=== PATIENT | female | born 1940 | race Caucasian/White ===

== ENCOUNTER 2024-11-18 16:18 | Inpatient (IN) | payer MEDICARE, OTHER, SELFPAY ==
[2024-11-18] VITALS (8 sets, daily range): BP systolic 96–154; BP diastolic 56–108; BMI 30.2
[2024-11-18 13:02] LABS: % Basophils 0.2 % (0-2); % Immature Granulocytes 0.5 % (0-0.5); % Lymphocytes 4.9 % (20.5-51.1); % Monocytes 6.6 % (1.7-9.3); % Neutrophils 87.8 % (42.2-75.2); Absolute Immature Granulocytes 0.1 10^3/uL (0-0.05); Absolute Lymphocytes 0.9 10^3/uL (1.2-3.4); Absolute Monocytes 1.3 10^3/uL (0.1-0.6); Absolute Neutrophils 16.7 10^3/uL (1.4-6.5); Hematocrit 37.8 % (37.0-47.0); Mean Corp Hgb Conc. 34.4 g/dL (33.0-37.0); Mean Corpuscular Hgb 32.2 pg (27.0-31.0); Mean Corpuscular Volume 93.6 fL (81.0-99.0); Mean Platelet Volume 9.8 fL (7.4-10.4); Nucleated Red Blood Cells % 0 %; Platelet Count 205 10^3/uL (130-400); Red Blood Cell Count 4.04 10^6/uL (4.20-5.40); Red Cell Dist. Width 12.6 % (11.5-14.5)
[2024-11-18 13:05] LABS: Urine Albumin 3+ (Neg - Trace); Urine Bilirubin Negative (Negative); Urine Character Slightly Cloudy (Clear); Urine Color Yellow; Urine Glucose Negative (Negative); Urine Ketone Negative (Negative); Urine Leukocyte 3+ (Negative); Urine Nitrite Negative (Negative); Urine Occult Blood 3+ (Negative); Urine Urobilinogen Negative (Neg - 1+)
[2024-11-18 13:19] LABS: COVID-19 Antigen Negative (Negative)
[2024-11-18 13:21] LABS: Lactic Acid 1.2 mmol/L (0.7-2.0)
[2024-11-18 13:22] LABS: ALT (SGPT) 24 U/L (0-35); AST (SGOT) 40 U/L (14-36); Alkaline Phosphatase 70 U/L (38-126); Blood Urea Nitrogen 26 mg/dl (7-17); Calcium 10.4 mg/dl (8.4-10.2); Carbon Dioxide 27 mmol/L (22-30); Chloride 99 mmol/L (98-107); Estimated Creatinine Clearance 49 ml/min; Glucose 120 mg/dl (70-99); Potassium 3.4 mmol/L (3.5-5.1); Sodium 136 mmol/L (135-145); Total Bilirubin 1.3 mg/dl (0.2-1.3); Total Protein 7.2 g/dl (6.3-8.2); eGFR > 60.00
[2024-11-18 13:45] LABS: Urine Bacteria Moderate (Negative); Urine Red Blood Cell 0-2 /HPF (0-2); Urine Squamous Cell 0-2 /LPF (Few); Urine White Cell 40-50 /HPF (0-5)
--- NOTE | 2024-11-18 13:47 | ED.GENMED ---
History of Present Illness
General
Chief Complaint: Change Level of Consciousness
Source: patient and family
Exam Limitations: none
Time Seen by Provider: 11/18/24 12:38
Nursing documentation reviewed up to this point in time: agreed with
History of Present Illness
History of Present Illness:
84-year-old female from [facility] presents for evaluation of confusion she had a fall few nights ago felt dizzy struck her head she has a contusion hematoma on her left forehead is also has some cough and congestion fever decreased p.o.
intake for few days has had sick contacts family member states she looks confused, not herself
Past History
Past History
ED Past Medical History: GERD, HTN, Hypercholesterolemia and Other (occipital neuralgia, pneumonia)
ED Past Surgical History: Bowel resection and Other (cataracts)
Social History
Tobacco: Former smoker
Alcohol: Occasional
Personal: Single
Living: with family
Employment: Retired
Family History
Family History: Other (Father with a abdominal aortic aneurysm mother with a cerebral hemorrhage, son with HIV)
Phy Exam
Physical Exam
Physical Exam:
Physical Exam
General: 84-year-old female febrile
Neck: Bruising about the left forehead
Heart: Tachycardia
Lungs: Rhonchorous
Abdomen: Soft
Neuro: alert and oriented. no focal neurological deficits globally weak
Skin: no rash
Psychiatric: cooperative
Extremities: no edema.
Course
Orders/Labs/Results
Orders:
Orders
11/18/24 12:43
COVID-19 Antigen Urgent
Source: Nasal Swab
Complete Blood Count/With Diff Urgent
Comprehensive Metabolic Panel Urgent
Lactic Acid Urgent
Influenza A+B Rapid Molecular Urgent
SANTOSH Source: Nasal Swab
Specimen Description:
11/18/24 12:47
Urinalysis Reflex To Culture Urgent
Date Specimen was Collected: 11/18/24
Time Specimen was Collected: 12:43
Urine Microscopic Reflex Cult Urgent
Urine Culture Urgent
SANTOSH Source: U
Specimen Description:
Date Specimen was Collected: 11/18/24
Time Specimen was Collected: 12:43
11/18/24 13:20
CT Cervical Spine W/o Iv Contr Urgent
Comment:
Reason For Exam: fall
CT Head W/o Iv Contrast Urgent
Comment:
Reason For Exam: fall
CR Chest - 2 Views Urgent
Comment:
Reason For Exam: cough
11/18/24 13:44
0.9% Sodium Chloride 1000 ml [Nss] 1,000 ml IV BOLUS
Acetaminophen [Tylenol] 650 mg PO NOW STA
11/18/24 13:51
Blood Culture Q30M
SANTOSH Source: Blood/Venous
Specimen Description:
Blood Culture Q30M
SANTOSH Source: Blood/Venous
Specimen Description:
CefTRIAXone [Rocephin] 1,000 mg IV NOW STA
Abnormal Lab Results
11/18/24 11/18/24
12:43 12:47
WBC 19.0 H 10^3/uL
(4.8-10.8)
RBC 4.04 L 10^6/uL
(4.20-5.40)
MCH 32.2 H pg
(27.0-31.0)
Abs Immat Gran (auto) 0.1 H 10^3/uL
(0-0.05)
Absolute Neuts (auto) 16.7 H 10^3/uL
(1.4-6.5)
Absolute Lymphs (auto) 0.9 L 10^3/uL
(1.2-3.4)
Absolute Monos (auto) 1.3 H 10^3/uL
(0.1-0.6)
Neutrophils % 87.8 H %
(42.2-75.2)
Lymphocytes % 4.9 L %
(20.5-51.1)
Potassium 3.4 L mmol/L
(3.5-5.1)
BUN 26 H mg/dl
(7-17)
Glucose 120 H mg/dl
(70-99)
Calcium 10.4 H mg/dl
(8.4-10.2)
AST 40 H U/L
(14-36)
Ur Occult Blood Reflex 3+ A
(Negative)
Leukocyte Esterase Rfl 3+ A
(Negative)
Urine WBC (Reflex) 40-50 A /HPF
(0-5)
Urine Bacteria (Reflex) Moderate A
(Negative)
Urine Albumin (Reflex) 3+ A
(Neg - Trace)
11/18/24 12:43
11/18/24 12:43
Vital Signs
Initial and Last Documented VS:
Initial Vital Signs
Temp Pulse Resp BP Pulse Ox
99.9 F 88 18 121/108 94
11/18/24 12:39 11/18/24 12:39 11/18/24 12:39 11/18/24 12:39 11/18/24 12:39
Last Documented Vital Signs
Temp Pulse Resp BP Pulse Ox
100.4 F H 88 21 126/56 95
11/18/24 13:44 11/18/24 12:46 11/18/24 12:46 11/18/24 12:46 11/18/24 12:53
*Critical Care Note
Total Time (30-74mins, 75-104mins- exclusive of procedures): Not Applicable
ED Attending Note
-
Portions of this chart may have been created with voice recognition software.� Occasional wrong word or��sound alike� substitutions may have occurred due to the inherent limitations of voice recognition software.
Discharge Plan
Departure
Patient Disposition: Admit
Date of Disposition: 11/18/24
Time of Disposition: 14:59
Admit to: Med/Surg
Presentation/result/management discussed w/ accepting MD/DO: Hospitalist
Patient with high blood pressure during this ER visit?: No
Condition: Fair
Discharge Problem:
Fever, Acute UTI, Delirious
Prescriptions:
No Action
oxybutynin chloride 15 MG tablet extended release 24hr
15 mg PO DAILY
melatonin 3 MG tablet
3 mg PO HSPRN PRN (Reason: sleep)
omeprazole 40 MG capsule,delayed release(DR/EC)
40 mg PO DAILY
metoprolol tartrate 50 MG tablet
50 mg PO BID
hydralazine 50 MG tablet
50 mg PO TID
escitalopram oxalate 10 MG tablet
10 mg PO DAILY
furosemide 20 MG tablet
20 mg PO DAILY
aspirin 81 MG tablet,delayed release (DR/EC)
81 mg PO DAILY
amlodipine 10 MG tablet
10 mg PO DAILY
atorvastatin 40 MG tablet
40 mg PO QPM 0RF
acetaminophen 325 MG tablet
650 mg PO Q4HPRN PRN (Reason: mild pain/ fever>100.5F) 0RF
lidocaine [Aspercreme (lidocaine)] 1 PATCH adhesive patch,medicated
2 patch topical DAILY 0RF
prochlorperazine maleate 5 MG tablet
5 mg PO Q6HPRN PRN (Reason: headache) 30 Days Qty: 120 0RF
cyanocobalamin (vitamin B-12) 1,000 MCG tablet
1,000 mcg PO DAILY 0RF
baclofen 10 MG tablet
10 mg PO Q6HPRN PRN (Reason: muscle spasm pain) 0RF
lisinopril 5 MG tablet
5 mg PO DAILY 0RF
gabapentin 100 MG capsule
100 mg PO TID 0RF
ergocalciferol (vitamin D2) 50,000 UNITS capsule
50,000 units PO Q7D 0RF
Referrals:
Horace Briseno DO [Family Provider] -
Interventions
Interventions:
*Risk Screen - Suicide Last Done: 11/18/24 12:39
*General Assessment Last Done: 11/18/24 12:39
*Neglect/Abuse Screening Last Done: 11/18/24 12:39
*ED COVID-19 Vaccine History Last Done: 11/18/24 12:39
ED- Cardiac Assessment Last Done: 11/18/24 12:53
ED- Neurological Assessment Last Done: 11/18/24 12:53
ED-Psychological Assessment Last Done: 11/18/24 12:53
ED- Pulmonary Assessment Last Done: 11/18/24 12:53
Discharge Date and Time
Print Language: SRI LANKAN
[2024-11-18] MEDS: TYLENOL 650 MG PO ×3 (13:51→19:50)
[2024-11-18] MEDS: NSS 1000 IV (13:52)
[2024-11-18] MEDS: ROCEPHIN 1000 MG IV (13:55)
--- NOTE | 2024-11-18 15:18 | HPS.HSE ---
Family Physician
-
Family Physician: Horace Briseno, DO
Chief Complaint
-
confusion, and cough
History of Present Illness
84F Res of [facility] HX HTN, HLD, GERD pw acute confusional state , cough and had fall at NH sustained Lt forehead hematoma
She is febrile, hi WCC and POS UA at ER
NEG [facility] for acute pathology
Medical History
Past Medical History
Past Medical History: Reports GERD, HTN, Hypercholesterolemia and Other (occipital neuralgia, pneumonia))
Past Surgical History: Reports Bowel Resection and Other (cataracts)
Social History
Tobacco: Former Smoker
Alcohol: Occasional
Personal: Single
Family History
Family History: Other (Father with a abdominal aortic aneurysm mother with a cerebral hemorrhage, son with HIV))
Allergies / Home Medications
Allergies reflects when Allergies were last updated in [employer].
Home Medications with original date entered in [employer]
Allergy/Medication List:
Allergies
Allergy/AdvReac Type Severity Reaction Status Date / Time
latex Allergy Itching, Verified 07/22/23 21:33
welts
Elastic
shellfish derived Allergy Swelling, Verified 07/22/23 21:33
itching
THROAT
Home Medications
escitalopram oxalate 10 mg tablet 10 mg PO DAILY Depression 07/26/21
furosemide 20 mg tablet 20 mg PO DAILY Fluid retention/Swelling 07/26/21
hydralazine 50 mg tablet 50 mg PO TID Blood pressure 07/26/21
melatonin 3 mg tablet 3 mg PO HSPRN PRN sleep 07/26/21
metoprolol tartrate 50 mg tablet 50 mg PO BID Heart disease/condition 07/26/21
omeprazole 40 mg capsule,delayed release 40 mg PO DAILY Gastrointestinal issue 07/26/21
oxybutynin chloride 15 mg tablet,extended release 24 hr 15 mg PO DAILY Urinary issue 07/26/21
amlodipine 10 mg tablet 10 mg PO DAILY Blood pressure 07/27/21
aspirin 81 mg tablet,delayed release 81 mg PO DAILY Blood clot prevention/tx 07/27/21
acetaminophen 325 mg tablet 650 mg (2 x 325 mg) PO Q4HPRN PRN mild pain/ fever>100.5F 08/03/21
atorvastatin 40 mg tablet 40 mg PO QPM 08/03/21
baclofen 10 mg tablet 10 mg PO Q6HPRN PRN muscle spasm pain 08/03/21
cyanocobalamin (vitamin B-12) 1,000 mcg tablet 1,000 mcg PO DAILY 08/03/21
ergocalciferol (vitamin D2) 1,250 mcg (50,000 unit) capsule 50,000 units PO Q7D 08/03/21
gabapentin 100 mg capsule 100 mg PO TID 08/03/21
lidocaine 4 % topical patch (Aspercreme (lidocaine)) 2 patch topical DAILY 08/03/21
lisinopril 5 mg tablet 5 mg PO DAILY 08/03/21
prochlorperazine maleate 5 mg tablet 5 mg PO Q6HPRN PRN headache 30 days #120 tabs 08/03/21
Review of Systems
-
Constitutional: Reports Fever
EENT: Reports No Symptoms
Respiratory: Reports No Symptoms
Cardiac: Reports No Symptoms
Abdomen/GI: Reports No Symptoms
: Reports No Symptoms
Musculoskeletal: Reports No Symptoms
Neurological: Reports Dizzy and Other (confused)
Endocrine: Reports No Symptoms
Hematologic/Lymphatic: Reports No Symptoms
Psych: Reports No Symptoms
Physical Exam
Vital Signs
Vital Signs
Temp Pulse Resp BP Pulse Ox
100.4 F H 92 19 146/82 95
11/18/24 13:44 11/18/24 14:00 11/18/24 14:00 11/18/24 14:00 11/18/24 13:15
Physical Exam
General: Well Developed and No Apparent Distress
HEENT: NormoCephalic, Moist mucous membranes, Atraumatic and Other (Bruising about the left forehead)
Respiratory: Clear
Cardiac: S1/S2 and Regular Rhythm; No Murmur or Rub
GI: Soft, Non Tender, Non Distended and Normal Bowel Sounds; No Organomegaly
Rectal: Deferred by Provider
Musculoskeletal: No Clubbing, No Cyanosis and No Edema
Skin: No Rash
Neuro: Awake, Alert, Nonfocal/grossly intact and Other (focal neurological deficits globally weak)
Psych: Confused
Laboratory Results
-
11/18/24 12:43
11/18/24 12:43
Laboratory Results
Lactic Acid 1.2 mmol/L (0.7-2.0) 11/18/24 12:43
Total Bilirubin 1.3 mg/dl (0.2-1.3) 11/18/24 12:43
AST 40 U/L (14-36) H 11/18/24 12:43
ALT 24 U/L (0-35) 11/18/24 12:43
Alkaline Phosphatase 70 U/L (38-126) 11/18/24 12:43
Data Reviewed
-
Diagnostic Radiology: Report Reviewed by me
CT Scan: Report Reviewed by me
Lab Data: Labs Reviewed by me
Impression/Plan
-
Pending CXR report
HCT
There is mild cortical atrophy, unchanged
Cx spine CT
There is no evidence of fracture.
severe degenerative changes with multilevel degenerative disc disease and grade 1 spondylolisthesis at C7/T1
No recent hospitalist admission:
ASSESSMENT & PLAN
Sepsis due to UTI with fever and acute confusional state due to infective encephalopathy
- UCx , BCx
- Septic bolus IV NS
- empiric IV CFTZ
- Trend T, WCC
S/P fall at NH
Prodromal dizziness complicated with hitting head sustained contusion hematoma Lt forehead hematoma
- NEG HCT
- Fall precautions
- PT/OT
Benign HTN
HX Fluid retention
- c/w Amlodipine with hold for SBP < 110
- c/w Lisinopril with hold from SBP < 110
- Hold Frusemide, Hydralazine
HLD
- GAGE DESIGNER atorvastatin
- c/w ASA
Depression
- c/w escitalopram
DVT Px: SQH
Full code
IP TLM
--- NOTE | 2024-11-18 17:35 | PTCARENOTE ---
1735 Pt arrived from ED via stretcher, alert and verbalizing. Noted MD orders. Place on telemetry (Sinus rhythm, Sinus tachycardia) heart rate 100 to 111) Noted pulse ox room air 90% (place on O2 2L via n/c) Temp 102.7, DR. Park notified and ordered
Tylenol 650 mg po, given as ordered.
Obtain second set of blood cultures as ordered per MD. Pt's granddaughter at bedside, continue to monitor pt closely.
--- NOTE | 2024-11-18 19:45 | PTCARENOTE ---
1735 Pt arrived from ED via stretcher, alert and verbalizing. Noted MD orders. Place on telemetry (Sinus rhythm, Sinus tachycardia) heart rate 100 to 111) Noted pulse ox room air 90% (place on )2 2L Temp 102.7
[2024-11-18] MEDS: HEPARIN 5000 UNITS SC (19:50)
[2024-11-19] VITALS (7 sets, daily range): BP systolic 84–164; BP diastolic 58–97; BMI 29.4
[2024-11-19] MEDS: LOPRESSOR 2.5 MG IV (00:54)
--- NOTE | 2024-11-19 01:15 | W.PN.UPDATE ---
Update Note
Progress Note Update
Called to see patient by RN for increased HR 120-130's, ordered EKG, showed new onset afib w/RVR, HR 130's.
Ordered Metoprolol 2.5 mg IV x 1 dose. HR 90-100's, remains in afib. Cardiology consult placed.
[2024-11-19] MEDS: SEROQUEL 25 MG PO (04:10)
[2024-11-19] MEDS: TYLENOL 650 MG PO (04:10)
[2024-11-19 06:53] LABS: Hematocrit 35.7 % (37.0-47.0); Hemoglobin 12.7 g/dL (12.0-16.0); Mean Corp Hgb Conc. 35.6 g/dL (33.0-37.0); Mean Corpuscular Hgb 33.1 pg (27.0-31.0); Mean Platelet Volume 10.4 fL (7.4-10.4); Platelet Count 207 10^3/uL (130-400); Red Blood Cell Count 3.84 10^6/uL (4.20-5.40); Red Cell Dist. Width 12.5 % (11.5-14.5); White Blood Cell Count 20.7 10^3/uL (4.8-10.8)
[2024-11-19 07:14] LABS: ALT (SGPT) 25 U/L (0-35); AST (SGOT) 40 U/L (14-36); Albumin 3.2 g/dl (3.5-5.0); Alkaline Phosphatase 74 U/L (38-126); Blood Urea Nitrogen 17 mg/dl (7-17); Calcium 10.2 mg/dl (8.4-10.2); Carbon Dioxide 23 mmol/L (22-30); Chloride 101 mmol/L (98-107); Estimated Creatinine Clearance 55 ml/min; Glucose 109 mg/dl (70-99); Potassium 3.1 mmol/L (3.5-5.1); Sodium 134 mmol/L (135-145); Total Bilirubin 1.5 mg/dl (0.2-1.3); Total Protein 6.5 g/dl (6.3-8.2); eGFR > 60.00
--- NOTE | 2024-11-19 07:26 | W.PN.HOSP.TC ---
Today's Communication/Plan
-
Continue antibiotics
Cardiology consult for new onset A-fib
Replete potassium
Trend WBC
Cultures pending
Assessment / Plan
Assessment / Plan
84-year-old female from [facility] presented for evaluation of confusion
HCT
There is mild cortical atrophy, unchanged
Cx spine CT
There is no evidence of fracture.
severe degenerative changes with multilevel degenerative disc disease and grade 1 spondylolisthesis at C7/T1
CXR: Probable atelectasis in both lower lobes
#Sepsis secondary to to UTI
# Leukocytosis
- UCx , BCx pending
- s/p Septic bolus IV NS
- empiric IV CFTZ
- Trend WBC
- Lactic acid within normal limits
- Flu and COVID-negative
# Atrial fibrillation; new onset
-EKG with A-fib with RVR
-s/p 1x Lopressor 2.5 mg
-Cardiology consulted
# Hypokalemia
-Replete
#S/P fall at NH
Prodromal dizziness complicated with hitting head sustained contusion hematoma Lt forehead hematoma
- NEG HCT
- Fall precautions
- PT/OT
#Benign HTN
HX Fluid retention
- c/w Amlodipine with hold for SBP < 110
- c/w Lisinopril with hold from SBP < 110
- Hold Frusemide, Hydralazine
#HLD
- RECREATIONAL THERAPY AIDE atorvastatin
- c/w ASA
Depression
- c/w escitalopram
DVT Px: SQH
Full code
Anticipated Discharge: 24 - 48 hours
Subjective/Interval History
-
Date of Service: November 19, 2024
Patient had fever overnight of 100.5. Complains of racing heart rate. She states ' I am not feeling well'
Objective Data
-
Labs:
Laboratory Results
11/19/24
06:29
WBC 20.7 H
Hgb 12.7
Hct 35.7 L
Plt Count 207
Sodium 134 L
Potassium 3.1 L
Chloride 101
Carbon Dioxide 23
BUN 17
Creatinine 0.8
Glucose 109 H
Calcium 10.2
Total Bilirubin 1.5 H
AST 40 H
ALT 25
Alkaline Phosphatase 74
Vital Signs:
Vital Signs
Temp Pulse Resp BP Pulse Ox
99.9 F 114 16 128/75 89
11/19/24 05:35 11/19/24 04:48 11/19/24 04:48 11/19/24 04:48 11/19/24 04:48
Review of Systems
-
History Source: Patient
Respiratory: Denies Trouble Breathing
Cardiac: Denies Chest Pain
Genitourinary: Reports No Symptoms
Musculoskeletal: Reports No Symptoms
Skin: Reports No Symptoms
Physical Exam
-
General: Appears Chronically Ill
Cardiac: S1/S2 and Irregular Rhythm
GI: Soft, Nontender and Nondistended
Skin: Warm, Dry and Other (Healing bruise on the left forehead)
Neuro: Awake, Alert and Oriented
Psych: Calm
Data Reviewed
-
Diagnostic Radiology: Report Reviewed by me
CT Scan: Report Reviewed by me
Labs: Labs Reviewed by me, Discussed with Physician and Discussed with Patient
[2024-11-19] MEDS: KCL 270 MEQ IV (08:30)
[2024-11-19] MEDS: ZESTRIL 5 MG PO (08:31)
[2024-11-19] MEDS: NORVASC 10 MG PO (08:31)
[2024-11-19] MEDS: HEPARIN 5000 UNITS SC ×2 (08:31→19:53)
[2024-11-19] MEDS: CARDIZEM 125 IV (10:37)
--- NOTE | 2024-11-19 10:50 | W.PN.UPDATE ---
Update Note
Progress Note Update
I saw and evaluated the patient. I reviewed the resident�s note and agree with findings and plan as documented in the resident�s note.
No new complaints.
Gen: NAD, awake and alert
Eyes: EOMI, PERRLA, no scleral icterus.
Neck: supple.
CV: Tachycardic, irregularly irregular, +S1/S2, no m/r/g.
Resp: CTAB anteriorly, no rales, wheezes, or rhonchi.
Abd: +BS, soft, NT, ND
Skin: No rashes. Right periorbital and left forehead ecchymoses
Neuro: CN 2-12 intact, non-focal.
Psych: Normal mood and affect.
11/18/24 12:43 Nasal Swab Influenza Types A & B (GAETANO) - Final
Negative for Influenza A & B, NAAT
Negative results must be combined with clinical observations
and patient history.
Nucleic Acid Amplification test (NAAT)performed on the
[employer] ID NOW platform.
CT brain: Mild cortical atrophy, unchanged
CT C-spine: No evidence of fracture. Severe degenerative changes with multilevel degenerative disc disease and grade 1 spondylolisthesis at C7/T1
Sepsis and acute metabolic encephalopathy due to acute UTI:
-s/p sepsis IVF bolus in ER
-cont Rocephin
-follow BCxs/UCx
Afib with RVR:
-new Dx
-cont Cardizem gtt
-c/s cards
-check echo
-With degree of patient's facial ecchymoses I would like to monitor these 1 more day before starting anticoagulation (risk of anticoagulation greatly outweighs benefit over the next 24 hours)
Fall:
-[employer] DEVELOPER at NH
-prodromal dizziness complicated head trauma sustaining contusion/hematoma L forehead
-PT/OT
Other problems:
Essential HTN: currently on cardizem gtt, cont Lisinopril
HLD: cont statin
Depression: cont Prozac
FULL/Heparin
[2024-11-19 11:08] LABS: TSH Reflex To Free T4 0.56 uIU/ml (0.47-4.68)
[2024-11-19 11:35] LABS: Magnesium 1.6 mg/dl (1.6-2.3)
--- NOTE | 2024-11-19 12:19 | CON.CAR ---
Addendum entered and electronically signed by Chan Ochoa MD 11/19/24 14:19:
I saw and examined the patient.
The Crating And Moving Estimator's note was reviewed and I agree with the note.
Comment: Briefly, 84-year-old woman presenting with confusion after a fall in her nursing facility and was found to be in atrial fibrillation with rapid ventricular response for which cardiology is consulted
IV diltiazem drip for rate control of atrial fibrillation, goal heart rate less than 110 bpm
If she remains in atrial fibrillation we will plan to start oral rate controlling meds
Continue to monitor on telemetry
Check echo
Ideally would be on anticoagulation. Will need to consider risk/benefit if she continues to have frequent falls. No evidence of intracranial hemorrhage based on head CT from 11/18/2024.
Treatment of UTI per hospitalist
Original Note:
Consultation
Consultation Request
Date/Time Consultation Performed: 11/19/24
Requesting Provider: Dr. Bostno
Performing Provider: Maday Ramírez PA-C for Dr. Ochoa
Reason for Consultation: afib
Medical History
-
Chief Complaint: fall, confusion
History of Present Illness:
Patient is an 84-year-old female with past medical history of hypertension, hyperlipidemia, depression, GERD with laparoscopic paraesophageal hernia repair and Sandra fundoplication in 2016, chronic cognitive impairment, history of fractured skull
in the setting of a fall who is a resident of [facility]. History from patient is limited as she is confused at times. She is able to tell me that several nights prior to admission she stood up and was attempting to walk across
the room, however slipped and fell. She is unsure of what she hit however did not strike her head with facial ecchymoses. Also with fever, decreased p.o. intake, and noted confusion and referred to the ER for evaluation. Noted to have a white
count and evidence of sepsis secondary to likely UTI. Overnight patient was noted to go into atrial fibrillation with rapid ventricular response, new diagnosis. Patient asymptomatic. Cardiology consulted for evaluation.
PMH:
HTN
HLD
Depression
GERD s/p laparoscopic paraesophageal hernia repair and Sandra fundoplication 02/03/2016
cognitive impairment
History of fractured skull
Colonic polyp s/p lap R hemicolectomy
Past Medical History
Past Medical History: Other (in HPI)
Social History
Tobacco: Former Smoker
Personal:
Living: Intermediate
Family History
Family History: Reviewed & Not Pertinent
Allergies / Home Medications
Allergy/AdvReac Type Severity Reaction Status Date / Time
latex Allergy Itching, Verified 07/22/23 21:33
welts
Elastic
shellfish derived Allergy Swelling, Verified 07/22/23 21:33
itching
THROAT
�Medication �Instructions �Recorded �Confirmed �Type
hydralazine 50 mg tablet 50 mg PO TID Blood pressure 07/26/21 11/18/24 History
metoprolol tartrate 50 mg tablet 50 mg PO BID Heart 07/26/21 11/18/24 History
disease/condition
omeprazole 40 mg capsule,delayed 40 mg PO DAILY Gastrointestinal 07/26/21 11/18/24 History
release issue
oxybutynin chloride 15 mg 15 mg PO DAILY Urinary issue 07/26/21 11/18/24 History
tablet,extended release 24 hr
amlodipine 10 mg tablet 10 mg PO DAILY Blood pressure 07/27/21 11/18/24 History
aspirin 81 mg tablet,delayed 81 mg PO DAILY Blood clot 07/27/21 11/18/24 History
release prevention/tx
acetaminophen 325 mg tablet 650 mg (2 x 325 mg) PO Q4HPRN PRN 08/03/21 11/18/24 Rx
mild pain/ fever>100.5F
cyanocobalamin (vitamin B-12) 1,000 mcg PO DAILY 08/03/21 11/18/24 Rx
1,000 mcg tablet
atorvastatin 40 mg tablet 40 mg PO HS 11/18/24 11/18/24 History
bisacodyl 10 mg rectal suppository 10 mg DE DAILYPRN PRN if no bm 11/18/24 11/18/24 History
(Dulcolax (bisacodyl)) aftr mom
cetirizine 10 mg tablet (Zyrtec) 10 mg PO DAILY 11/18/24 11/18/24 History
cholecalciferol (vitamin D3) 1,250 1,250 mcg PO MO 11/18/24 11/18/24 History
mcg (50,000 unit) tablet
fluoxetine 10 mg tablet 10 mg PO DAILY 11/18/24 11/18/24 History
ipratropium bromide 21 mcg (0.03 1 spray intranasal DAILY 11/18/24 11/18/24 History
%) nasal spray
lisinopril 5 mg tablet 10 mg PO DAILY 11/18/24 11/18/24 History
magnesium hydroxide 400 mg/5 mL 2,400 mg PO DAILYPRN PRN if no bm 11/18/24 11/18/24 History
oral suspension (Milk of Magnesia) by 3rd day
mineral vyd-zyrlvl-[id number] oil 1 applic topical TIDPRN PRN naseem 11/18/24 11/18/24 History
topical cream area skin break down
mirabegron 25 mg tablet,extended 25 mg PO HS 11/18/24 11/18/24 History
release 24 hr (Myrbetriq)
peg 400-propylene glycol 0.4 %-0.3 1 drp BOTH EYES BID 11/18/24 11/18/24 History
% eye drops (Systane Ultra)
polyethylene glycol 3350 17 gram 17 g PO DAILY 11/18/24 11/18/24 History
oral powder packet (Miralax)
sodium phosphates 19 gram-7 118 ml DE DAILYPRN PRN if no bm 11/18/24 11/18/24 History
gram/118 mL enema (Fleet Enema) aftr dulcalax
Review of Systems
-
History Source: Patient
All other systems: Negative unless noted
Physical Exam
Vital Signs
Temp Pulse Resp BP Pulse Ox
97.8 F 118 22 164/97 96
11/19/24 11:00 11/19/24 11:00 11/19/24 11:00 11/19/24 11:00 11/19/24 11:00
Lab Results
11/19/24 06:29
11/19/24 06:29
Physical Exam
General: No Apparent Distress, Comfortable and Other (confused at times. on supp O2)
HEENT: Normocephalic, Anicteric, Moist Mucous Membranes and Other (facial ecchymoses)
Respiratory: Clear and Non Labored Respirations
Cardiac: S1/S2 and Irregular Rhythm
GI: Soft, Non Tender, Non Distended and Normal Bowel Sounds
Musculoskeletal: No Clubbing, No Cyanosis and No Edema
Skin: Warm and Dry
Neuro: Oriented (to self, place) and Other (confused at times)
Impression / Plan
-
Primary [employer] V[employer] Worker: remotely, Dr. BEATRIZ Madrigal, has not been seen in [facility] office since 2015
Assessment:
Presentation with confusion
Recent fall/L forehead hematoma
Leukocytosis
Sepsis
Acute UTI
Afib with RVR, new diagnosis
HTN
HLD
Depression
GERD s/p laparoscopic paraesophageal hernia repair and Sandra fundoplication 02/03/2016
cognitive impairment
History of fractured skull
Colonic polyp s/p lap R hemicolectomy
ECHO 07/27/2021: EF 65 to 70%, mild concentric LVH, stage II diastolic dysfunction, posterior MAC, mild MR, mild with peak/mean gradients 21/12 mmHg, ASIYA 1.6 cm grade, mild AR, mild TR, PAP 31 to 36 mmHg
Plan:
-Patient with recent fall and left forehead hematoma then noted to have confusion. Being treated for sepsis secondary to UTI. Head CT without acute abnormalities
-went into afib with RVR overnight resulting in cardiology consultation. was given 2.5mg IV lopressor x1 without improvement
-will initiate IV cardizem gtt @5. BP stable
-[id number] score of 4 for age, female, HTN. would consider for OAC however given recent fall with significant facial ecchymoses, plan per hospitalist to hold off for 24 hours.
-check echo. last from 2020 with results as above
-ordered TSH
-replete K
-continue treatment of UTI per primary service. blood cultures pending
-follow mental status
Data Reviewed
-
EKG: Tracing Personally Visualized and interpreted
CT Scan: Report Reviewed by me
Medical Tests (Nuc Med, Echo etc): Report Reviewed by me
Labs: Labs Reviewed by me
Old Records: Reviewed
[2024-11-19] MEDS: ROCEPHIN 1000 MG IV (13:14)
[2024-11-19] MEDS: STERILE WATER FOR INJECTION 10 ML IV (13:15)
[2024-11-19] MEDS: PROZAC 10 MG PO (13:15)
[2024-11-19] MEDS: NSS 1000 IV ×2 (13:20→23:59)
[2024-11-20 03:15] VITALS: BP 138/73
[2024-11-20] MEDS: TYLENOL 650 MG PO ×2 (03:15→20:50)
[2024-11-20 05:29] VITALS: BMI 30.5
[2024-11-20 06:31] LABS: Urine Albumin 3+ (Neg - Trace); Urine Bilirubin Negative (Negative); Urine Character Slightly Cloudy (Clear); Urine Color Yellow; Urine Glucose Negative (Negative); Urine Ketone 1+ (Negative); Urine Leukocyte 3+ (Negative); Urine Nitrite Negative (Negative); Urine Occult Blood 4+ (Negative); Urine Urobilinogen Negative (Neg - 1+)
[2024-11-20 06:46] LABS: Urine Bacteria Few (Negative); Urine Red Blood Cell 0-2 /HPF (0-2); Urine Squamous Cell >30 /LPF (Few)
--- NOTE | 2024-11-20 07:12 | W.PN.HOSP.TC ---
Today's Communication/Plan
-
Continue antibiotics
Continue IV fluids
Cardiology following for new onset A-fib
Echo today
Assessment / Plan
Assessment / Plan
84-year-old female from [facility] presented for evaluation of confusion
HCT
There is mild cortical atrophy, unchanged
Cx spine CT
There is no evidence of fracture.
severe degenerative changes with multilevel degenerative disc disease and grade 1 spondylolisthesis at C7/T1
CXR: Probable atelectasis in both lower lobes
#Sepsis secondary to to UTI
# Leukocytosis
- UCx , BCx pending
- s/p Septic bolus IV NS
- empiric IV CFTZ
- Continue IV fluids
- Trend WBC: Slightly improved
- Lactic acid within normal limits
- Flu and COVID-negative
# Atrial fibrillation; new onset
-EKG with A-fib with RVR
-s/p 1x Lopressor 2.5 mg
-Cardiology following
-Currently on a Cardizem drip; heart rate around 100s
-Remains in A-fib; echo today
# Redness of Left Lower Leg
- Patient states she has a h/o recurrent cellulitis
# Hypokalemia
-Replete
#S/P fall at NH
Prodromal dizziness complicated with hitting head sustained contusion hematoma Lt forehead hematoma
- NEG HCT
- Fall precautions
- PT/OT
#Benign HTN
HX Fluid retention
- c/w Amlodipine with hold for SBP < 110
- c/w Lisinopril with hold from SBP < 110
- Hold Frusemide, Hydralazine
#HLD
- HEALTHCARE ACCOUNT MANAGER atorvastatin
- c/w ASA
Depression
- c/w escitalopram
DVT Px: SQH
Full code
Anticipated Discharge: 24 - 48 hours
Subjective/Interval History
-
Date of Service: November 20, 2024
HR near 100s. Offers no new complaints. Denies chest pain or trouble breathing.
Objective Data
-
Labs:
Laboratory Results
11/20/24
06:00
WBC Pending
Hgb Pending
Hct Pending
Plt Count Pending
Sodium Pending
Potassium Pending
Chloride Pending
Carbon Dioxide Pending
BUN Pending
Creatinine Pending
Glucose Pending
Calcium Pending
Vital Signs:
Vital Signs
Temp Pulse Resp BP Pulse Ox
99.0 F 99 16 138/73 93
11/20/24 03:15 11/20/24 03:15 11/20/24 03:15 11/20/24 03:15 11/19/24 23:45
I&O
11/19/24 11/20/24 11/21/24
06:59 06:59 06:59
Intake Total 1740 / 1740
Balance 1740 / 1740
Review of Systems
-
History Source: Patient
Respiratory: Denies Trouble Breathing
Cardiac: Denies Chest Pain
Genitourinary: Reports No Symptoms
Musculoskeletal: Reports No Symptoms
Skin: Reports No Symptoms
Physical Exam
-
General: Well Developed, Well Nourished and Appears Chronically Ill
HEENT: Normocephalic
Cardiac: S1/S2 and Irregular Rhythm
GI: Soft, Nontender and Nondistended
Musculoskeletal: Other (Mild erythema on the left lower leg.)
Skin: Warm, Dry and Other (Healing bruise on the left forehead)
Neuro: Awake, Alert and Oriented
Psych: Calm (Very talkative)
Data Reviewed
-
Labs: Labs Reviewed by me, Discussed with Physician and Discussed with Patient
[2024-11-20 07:46] VITALS: BP 122/73
[2024-11-20 08:06] LABS: Hematocrit 32.5 % (37.0-47.0); Hemoglobin 11.3 g/dL (12.0-16.0); Mean Corp Hgb Conc. 34.8 g/dL (33.0-37.0); Mean Corpuscular Volume 92.1 fL (81.0-99.0); Mean Platelet Volume 10.7 fL (7.4-10.4); Platelet Count 209 10^3/uL (130-400); Red Blood Cell Count 3.53 10^6/uL (4.20-5.40); White Blood Cell Count 19.2 10^3/uL (4.8-10.8)
[2024-11-20] MEDS: PROZAC 10 MG PO (08:46)
[2024-11-20] MEDS: HEPARIN 5000 UNITS SC (08:46)
[2024-11-20] MEDS: ZESTRIL 5 MG PO (08:46)
[2024-11-20 08:58] LABS: Blood Urea Nitrogen 21 mg/dl (7-17); Carbon Dioxide 23 mmol/L (22-30); Chloride 103 mmol/L (98-107); Estimated Creatinine Clearance 56 ml/min; Glucose 90 mg/dl (70-99); Potassium 3.5 mmol/L (3.5-5.1); Sodium 134 mmol/L (135-145); eGFR > 60.00
--- NOTE | 2024-11-20 11:05 | W.PN.UPDATE ---
Addendum entered and electronically signed by Jerry Boston MD 11/20/24 13:56:
Correction: Cellulitis is LLE (not Right)
Original Note:
Update Note
Progress Note Update
I saw and evaluated the patient. I reviewed the resident�s note and agree with findings and plan as documented in the resident�s note.
No new complaints.
Gen: NAD, awake and alert
Eyes: EOMI, PERRLA, no scleral icterus.
Neck: supple.
CV: remains Tachycardic, irregularly irregular, +S1/S2, no m/r/g.
Resp: faint rales L base
Abd: +BS, soft, NT, ND
Skin: RLE cellulitis. B/L periorbital and left forehead ecchymoses.
Neuro: CN 2-12 intact, non-focal.
Psych: Normal mood and affect.
11/18/24 12:47 Urine Urine Culture - Final
Escherichia coli
11/19/24 06:29 Blood/Venous Blood Culture - Preliminary
No Growth in 24 hours- Final report to follow
11/18/24 18:17 Blood/Venous Blood Culture - Preliminary
No Growth in 24 hours- Final report to follow
11/18/24 13:51 Blood/Venous Blood Culture - Preliminary
No Growth in 24 hours- Final report to follow
11/18/24 13:51 Blood/Venous Blood Culture - Preliminary
No Growth in 24 hours- Final report to follow
11/18/24 12:43 Nasal Swab Influenza Types A & B (GAETANO) - Final
Negative for Influenza A & B, NAAT
Negative results must be combined with clinical observations
and patient history.
Nucleic Acid Amplification test (NAAT) performed on the
[employer] NOW platform.
CT brain: Mild cortical atrophy, unchanged
CT C-spine: No evidence of fracture. Severe degenerative changes with multilevel degenerative disc disease and grade 1 spondylolisthesis at C7/T1
Sepsis and acute metabolic encephalopathy due to acute UTI:
-s/p sepsis IVF bolus in ER
-cont Rocephin
-follow BCxs/UCx
Afib with RVR:
-new Dx
-cont Cardizem gtt
-start cardizem 30mg PO Q6H, first dose now
-cards following
-check echo
-starting Eliquis while pt is hospitalized. Case discussed with cardiology and due to fall risk will d/c on ASA only.
RLE cellulitis'
-elevation/compression
-on Rocephin
Fall:
-SELF PAY COLLECTOR at NH
-prodromal dizziness complicated head trauma sustaining contusion/hematoma L forehead
-PT/OT
Other problems:
Essential HTN: currently on cardizem gtt, start PO Cardizem, cont Lisinopril
HLD: cont statin
Depression: cont Prozac
FULL/Eliquis
Total time spent on today's encounter was 50 minutes which included time spent in counseling the patient/family regarding diagnosis and treatment plan as listed above, goals of care, and symptom management. Case was discussed with nursing staff,
specialists, and care coordinators/case management. All labs and imaging personally reviewed by me. Remainder the time spent in detailed review of previous records, lab data, imaging, and other medical provider documentation.
[2024-11-20 11:38] VITALS: BP 135/76
[2024-11-20] MEDS: NSS 1000 IV ×2 (11:54→20:45)
[2024-11-20] MEDS: ELIQUIS 5 MG PO ×2 (11:56→20:45)
[2024-11-20] MEDS: CARDIZEM 30 MG PO (11:56)
--- NOTE | 2024-11-20 12:16 | W.PN.CARDCBS ---
Addendum entered and electronically signed by Mandy Gagnon DO 11/20/24 17:29:
I saw and examined the patient.
The Topology Professor's note was reviewed and I agree with the note.
Comment: Patient was seen and examined. She offers no complaints and denies chest pain or pressure.
GEN: No distress, awake, alert. confused at times. on supp O2
HEENT:Bilateral facial, orbital ecchymosis following fall
LUNGS: Bronchovesicular breath sounds, decreased but clear
CV: Irreg, S1/S2, no murmur
ABD: soft, BS+, NT/ND
EXT: NoEdema
Plan:
Recurrent falls most recently with head trauma/hematoma
-History of fractured skull in 2022 and now with additional fall at [place].
-Given history of recurrent falls higher risk for fall risk and bleeding complications on long-term anticoagulation. Patient was able to discussed diagnosis of atrial fibrillation and also reiterate risks and benefits of anticoagulation. She agrees
that she is at high risk for bleeding complications due to recurrent falls and prefers aspirin therapy alone. Recommend discontinuation of Eliquis and plan for discharge on aspirin alone.Discussed with hospitalist who will discuss further with
family members.
-New diagnosis atrial fibrillation with relatively rate controlled new diagnosis of atrial fibrillation, asymptomatic with plan for rate control strategy. Will attempt to transition off of IV Cardizem and start p.o. Cardizem CD120 twice daily
-TSH WNL
-2D echocardiogram with vigorous LV systolic function, EF 65 to 70% with mild stable aortic stenosis
-? concussion given reported dizziness
-Continue treatment of urosepsis per primary service. blood cultures negative thus far
-PT/OT
-Will sign off, recall if needed
-Outpatient cardiac follow-up to be arranged
Original Note:
Today's Communication / Plan
-
attempt to transition off IV cardizem today
check echo
not ideal OAC candidate given recurrent falls with facial trauma
Impression / Plan
-
Primary Scrap Hoist Operator: remotely, Dr. BEATRIZ Madrigal, has not been seen in [facility] office since 2015
Assessment:
Presentation with confusion
Recent fall/L forehead hematoma
Leukocytosis
Sepsis
Acute UTI
Afib with RVR, new diagnosis
HTN
HLD
Depression
GERD s/p laparoscopic paraesophageal hernia repair and Sandra fundoplication 02/03/2016
cognitive impairment
History of fractured skull
Colonic polyp s/p lap R hemicolectomy
ECHO 07/27/2021: EF 65 to 70%, mild concentric LVH, stage II diastolic dysfunction, posterior MAC, mild MR, mild with peak/mean gradients 21/12 mmHg, ASIYA 1.6 cm grade, mild AR, mild TR, PAP 31 to 36 mmHg
Plan:
-Continue treatment of urosepsis per primary service. blood cultures negative thus far
-found to have new afib. HRs remain elevated. will attempt to transition off IV cardizem today. start po cardizem cd 120mg BID
-awaiting echo
-Reports complaints of dizziness specifically with movement. head CT ok. ? concern for concussion
-she does have history of fractured skull in 2022 and now with additional fall at [place]. does not appear to be ideal OAC candidate. primary service to discuss with family
-TSH WNL
-replete K
-follow mental status
-PT/OT
Progress Note - Scrap Hoist Operator
Subjective
Date of Service: November 20, 2024
reports dizziness specifically with movement
Objective
Labs:
11/20/24 07:25
11/20/24 07:25
Labs
Hgb 11.3 g/dL (12.0-16.0) L 11/20/24 07:25
Hct 32.5 % (37.0-47.0) L 11/20/24 07:25
Plt Count 209 10^3/uL (130-400) 11/20/24 07:25
Sodium 134 mmol/L (135-145) L 11/20/24 07:25
Potassium 3.5 mmol/L (3.5-5.1) 11/20/24 07:25
BUN 21 mg/dl (7-17) H 11/20/24 07:25
Creatinine 0.8 mg/dL (0.6-1.0) 11/20/24 07:25
Glucose 90 mg/dl (70-99) 11/20/24 07:25
Vital Signs and I&O:
Vital Signs
Temp Pulse Resp BP Pulse Ox
98.4 F 100 18 135/76 97
11/20/24 11:38 11/20/24 11:38 11/20/24 11:38 11/20/24 11:38 11/20/24 11:38
Vital Signs
Temp Pulse Resp BP Pulse Ox
98.4 F 100 18 135/76 97
11/20/24 11:38 11/20/24 11:38 11/20/24 11:38 11/20/24 11:38 11/20/24 11:38
Intake & Output
11/18/24 11/19/24 11/20/24 11/21/24
07:59 07:59 07:59 07:59
Intake Total 1740 / 1740
Balance 1740 / 1740
Physical Exam
Physical Exam
GEN: No distress, awake, alert. confused at times. on supp O2
HEENT: supple, anicteric, mmm, eomi
LUNGS: CTA B/L, no wheezes
CV: Irreg, S1/S2, no murmur
ABD: soft, BS+, NT/ND
EXT: No cyanosis, clubbing, edema
NEURO: Gross non-focal
SKIN: Warm, pink, dry. No rash
--- NOTE | 2024-11-20 14:59 | CM ---
Initial assessment completed. Admitted for confusion and cough. Patient is a LTC resident at [facility].
CM spoke w/ [facility] nurse who confirmed patient is independent w/ ADLs, transfers and mobility. No DME identified.
Met w/ patient bedside who confirmed she is independent, she was prev using a cane but no longer has one. Patient stated she sometimes help the other residents as well. Patient stated she was prev living w/ her daughter in [place], [place] prior to
admitting to [facility].
Address, points of contact and insurance verified
PCP: Horace Briseno
Pharmacy: [facility]
CM consulted for advanced directive. Patient agreeable to accept paperwork
Plan: Return to [facility] when stable
[2024-11-20] MEDS: STERILE WATER FOR INJECTION 10 ML IV (15:05)
[2024-11-20] MEDS: ROCEPHIN 1000 MG IV (15:05)
[2024-11-20 15:24] VITALS: BP 144/83
[2024-11-20 20:44] VITALS: BP 154/76
[2024-11-20] MEDS: CARDIZEM CD 120 MG PO (20:45)
[2024-11-21] VITALS (8 sets, daily range): BP systolic 115–149; BP diastolic 56–104; BMI 30.4
[2024-11-21] MEDS: NSS 1000 IV ×2 (05:51→16:45)
--- NOTE | 2024-11-21 07:20 | W.PN.HOSP.TC ---
Today's Communication/Plan
-
Continue antibiotics
Assessment / Plan
Assessment / Plan
84-year-old female from [facility] presented for evaluation of confusion
HCT
There is mild cortical atrophy, unchanged
Cx spine CT
There is no evidence of fracture.
severe degenerative changes with multilevel degenerative disc disease and grade 1 spondylolisthesis at C7/T1
CXR: Probable atelectasis in both lower lobes
#Sepsis secondary to to UTI
# Leukocytosis
- UCx positive for E. coli
- BCx pending
- s/p Septic bolus IV NS
- empiric IV CFTZ
- Continue IV fluids
- Trend WBC: Slightly improved
- Lactic acid within normal limits
- Flu and COVID-negative
# Atrial fibrillation; new onset
-EKG with A-fib with RVR
-s/p 1x Lopressor 2.5 mg
-Cardiology following
-Cardizem increased to 120 mg twice daily by cardio; patient with regular rhythm on physical exam today.
-Echo with normal left ventricular size with vigorous left ventricular systolic function. Ejection fraction 65-70 percent
-Cardiology recommended discontinuation of Eliquis and plan for discharge on aspirin alone given high risk of bleeding complication due to recurrent falls.
# Cellulitis/of Left Lower Leg
- Patient states she has a h/o recurrent cellulitis
-On Rocephin
# Hypokalemia
-Replete; a.m. labs pending
#S/P fall at NH
Prodromal dizziness complicated with hitting head sustained contusion hematoma Lt forehead hematoma
- NEG HCT
- Fall precautions
- PT/OT
#Benign HTN
HX Fluid retention
- c/w Lisinopril with hold from SBP < 110
- Hold Frusemide, Hydralazine
#HLD
- RN SEXUAL ASSAULT atorvastatin
- c/w ASA
Depression
- c/w escitalopram
DVT Px: SQH
Full code
Anticipated Discharge: Within 24 hours
Subjective/Interval History
-
Date of Service: November 21, 2024
Afebrile. Heart rate in the 80s. Offers no new complaints.
Objective Data
-
Labs:
Laboratory Results
11/21/24
07:08
WBC Pending
Hgb Pending
Hct Pending
Plt Count Pending
Sodium Pending
Potassium Pending
Chloride Pending
Carbon Dioxide Pending
BUN Pending
Creatinine Pending
Glucose Pending
Calcium Pending
Vital Signs:
Vital Signs
Temp Pulse Resp BP Pulse Ox
97.6 F 86 18 115/56 95
11/21/24 03:25 11/21/24 05:12 11/21/24 03:25 11/21/24 05:12 11/21/24 03:25
I&O
11/20/24 11/21/24 11/22/24
06:59 06:59 06:59
Intake Total 1740 / 1740 120 / 120
Balance 1740 / 1740 120 / 120
Review of Systems
-
History Source: Patient
Respiratory: Denies Trouble Breathing
Cardiac: Denies Chest Pain
Genitourinary: Reports No Symptoms
Musculoskeletal: Reports No Symptoms
Skin: Reports No Symptoms
Physical Exam
-
General: Well Developed, Well Nourished and Appears Chronically Ill
HEENT: Normocephalic
Cardiac: Regular Rhythm and S1/S2
GI: Soft, Nontender and Nondistended
Musculoskeletal: Other (Mild erythema and swelling on the left lower leg.)
Skin: Warm, Dry and Other (Healing bruise on the left forehead and around eyes,)
Neuro: Awake, Alert and Oriented
Psych: Calm (Very talkative)
Data Reviewed
-
Labs: Labs Reviewed by me, Discussed with Physician and Discussed with Patient
--- NOTE | 2024-11-21 08:16 | W.PN.UPDATE ---
Update Note
Progress Note Update
I saw and evaluated the patient. I reviewed the resident�s note and agree with findings and plan as documented in the resident�s note.
No new complaints.
Gen: NAD, awake and alert
Eyes: EOMI, PERRLA, no scleral icterus.
Neck: supple.
CV: irregularly irregular, +S1/S2, no m/r/g.
Resp: CTAB anteriorly
Abd: +BS, soft, NT, ND
Skin: LLE cellulitis (improved from yesterday). B/L periorbital and left forehead ecchymoses.
Neuro: CN 2-12 intact, non-focal.
Psych: Normal mood and affect.
11/18/24 12:47 Urine Urine Culture - Final
Escherichia coli
11/19/24 06:29 Blood/Venous Blood Culture - Preliminary
No Growth in 24 hours- Final report to follow
11/18/24 18:17 Blood/Venous Blood Culture - Preliminary
No Growth in 24 hours- Final report to follow
11/18/24 13:51 Blood/Venous Blood Culture - Preliminary
No Growth in 24 hours- Final report to follow
11/18/24 13:51 Blood/Venous Blood Culture - Preliminary
No Growth in 24 hours- Final report to follow
11/18/24 12:43 Nasal Swab Influenza Types A & B (GAETANO) - Final
Negative for Influenza A & B, NAAT
Negative results must be combined with clinical observations
and patient history.
Nucleic Acid Amplification test (NAAT) performed on the
[employer] NOW platform.
CT brain: Mild cortical atrophy, unchanged
CT C-spine: No evidence of fracture. Severe degenerative changes with multilevel degenerative disc disease and grade 1 spondylolisthesis at C7/T1
Echo: Normal left ventricular size with vigorous left ventricular systolic function
Moderate concentric left ventricular hypertrophy
No Doppler evidence to suggest LV/LVOT obstruction
LV ejection fraction by Castrejon's method 65-70%
Normal RV size and systolic function
Thickened mitral valve leaflets with mitral annular calcification and mild
mitral regurgitation
Mild aortic stenosis with mild aortic insufficiency. Peak/mean gradients across
the aortic valve are 30/17 mmHg. Using an LVOT diameter of 2.1 cm, the aortic
valve by the Continuity equation is calculated at 2.0 cm2; by planimetry 1.7
cm2.
Trace tricuspid regurgitation
No pericardial effusion
Compared to prior study dated 07/27/2021, study was done in sinus rhythm,
otherwise no significant change
Sepsis and acute metabolic encephalopathy due to acute UTI:
-s/p sepsis IVF bolus in ER
-cont Rocephin
-BCxs NGTD, UCx with E coli
Afib with RVR:
-new Dx
-was on Cardizem gtt, now transitioned to Cardizem CD
-cards following
-Echo above, no change from 2020
-cont Eliquis while pt is hospitalized. Case discussed with cardiology and due to fall risk will d/c on ASA only.
LLE cellulitis:
-elevation/compression
-on Rocephin
Fall:
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
-prodromal dizziness complicated head trauma sustaining contusion/hematoma L forehead
-PT/OT
Other problems:
Essential HTN: cont Cardizem CD/Lisinopril
HLD: cont statin
Depression: cont Prozac
FULL/Eliquis
[2024-11-21 08:20] LABS: Hematocrit 32.6 % (37.0-47.0); Hemoglobin 11.2 g/dL (12.0-16.0); Mean Corp Hgb Conc. 34.4 g/dL (33.0-37.0); Mean Corpuscular Volume 93.1 fL (81.0-99.0); Mean Platelet Volume 10.8 fL (7.4-10.4); Platelet Count 242 10^3/uL (130-400); Red Cell Dist. Width 13.2 % (11.5-14.5); White Blood Cell Count 18.5 10^3/uL (4.8-10.8)
[2024-11-21] MEDS: PROZAC 10 MG PO (08:28)
[2024-11-21] MEDS: ZESTRIL 5 MG PO (08:28)
[2024-11-21] MEDS: ELIQUIS 5 MG PO ×2 (08:29→20:12)
[2024-11-21] MEDS: CARDIZEM CD 120 MG PO ×2 (08:29→20:13)
[2024-11-21 08:55] LABS: Blood Urea Nitrogen 16 mg/dl (7-17); Calcium 9.6 mg/dl (8.4-10.2); Carbon Dioxide 27 mmol/L (22-30); Chloride 105 mmol/L (98-107); Estimated Creatinine Clearance 64 ml/min; Glucose 87 mg/dl (70-99); Potassium 3.5 mmol/L (3.5-5.1); Sodium 136 mmol/L (135-145); eGFR > 60.00
--- NOTE | 2024-11-21 13:06 | CM ---
CM spoke w/ patient's granddaughter, Stacy, who informed CM that she doesn't want patient returning to [facility] for LTC. Stacy has concerns of quality of care and would like for CM to explore other facilities in either [place] or
[place]. Stacy shared patient is unable to live w/ her, that patient has trouble ascending the stairs to her second floor apartment. Stacy also stated she has five children and is on a fixed income but more so is concerned about patient's care
needs. CM discussed w/ Stacy patient will have to complete financial reviews depending on the facility and will have to see if a LTC bed is available. Stacy understood this.
CM placed multiple referrals in [facility] for review.
CM spoke w/ [facility] admissions to see if patient can be considered for one of the [facility] facilities. Per Lakshmi, patient has been a resident at [facility] for 3 years, rarely gets hospitalized and is independent. Lakshmi stated patient's
granddaughter has expressed the desire to want to move patient out of the facility and was instructed to provide a list of places but has not been compliant w/ this.
Plan: LTC placement. Referrals pending at this time
[2024-11-21] MEDS: STERILE WATER FOR INJECTION 10 ML IV (15:36)
[2024-11-21] MEDS: TYLENOL 650 MG PO (15:37)
[2024-11-21] MEDS: ROCEPHIN 1000 MG IV (15:37)
[2024-11-22] MEDS: NSS 1000 IV ×2 (02:50→08:47)
[2024-11-22 03:10] VITALS: BP 132/79
[2024-11-22] MEDS: TYLENOL 650 MG PO ×2 (04:02→23:13)
[2024-11-22 06:00] VITALS: BMI 30.1
--- NOTE | 2024-11-22 07:19 | W.PN.HOSP.TC ---
Addendum entered and electronically signed by Nakia Marx MD 11/22/24 15:49:
I saw and evaluated the patient. I reviewed the resident�s note and agree with findings and plan as documented in the resident�s note except for changes in my documentation
84-year-old female from [facility] presented with mental status change/confusion. Also had a fall
Head CT-mild atrophy. Unchanged
Cervical spine CT-no fracture. Severe degenerative changes with multilevel DJD and grade 1 spondylolisthesis at C7-T1
ECHO-normal LV size and vigorous LV systolic function. Moderate concentric LVH. EF 65 to 70%. Normal RV size and function. Thickened mitral valves and mitral annular calcification and mild MR. Mild . Trace TR
Chest x-ray atelectasis in both lower lobes
CVS: S1-S2 irregular
Chest: CTA B/L
Abdomen: Soft, NT / Bowel sounds present
Extremities: Left lower extremity edema and redness noted
skin-ecchymosis around left forehead and also around eyes
# Sepsis secondary to UTI
Urine cultures positive for E. coli
Blood cultures negative
Continue ceftriaxone
# TME secondary to above
# A-fib with RVR-new diagnosis
Cardizem drip transitioned to Cardizem CD
Echo as above no change since 2020
Continue Eliquis while hospitalized and discharged on aspirin only secondary to fall risk as per discussion with cardiology
# Left lower extremity cellulitis-continue ceftriaxone. Kalpesh bandages
# [place] prior to [place]
Head trauma sustaining contusion and hematoma of left forehead
Continue PT OT
# Hypertension-continue Cardizem and lisinopril
# Hyperlipidemia-continue statin
# Depression-continue Prozac
# 1.0-cm meningioma arising from the left side of the interhemispheric falx and causing mild mass effect on the medial aspect of the left parietal lobe
# GERD/hiatal hernia-continue PPI
# Fibromyalgia
# Severe discogenic degenerative disease at C3/C4 and C4/C5, thoracic spine and lumbar spine
# Diverticulosis
# Sleep apnea-continue CPAP
# Ex-smoker
# DVT prophylaxis-currently on Eliquis
# Full code
D/W RN
Original Note:
Today's Communication/Plan
-
Replete potassium
Continue IV antibiotics
Continue Eliquis while in the hospital
Assessment / Plan
Assessment / Plan
84-year-old female from [facility] presented for evaluation of confusion
HCT
There is mild cortical atrophy, unchanged
Cx spine CT
There is no evidence of fracture.
severe degenerative changes with multilevel degenerative disc disease and grade 1 spondylolisthesis at C7/T1
CXR: Probable atelectasis in both lower lobes
#Sepsis secondary to to UTI
# Leukocytosis; trending down
- UCx positive for E. coli
- BCx pending
- s/p Septic bolus IV NS
- empiric IV CFTZ 5/
- Continue IV fluids
- Trend WBC: Slightly improved
- Lactic acid within normal limits
- Flu and COVID-negative
# Atrial fibrillation; new onset
-EKG with A-fib with RVR
-s/p 1x Lopressor 2.5 mg
-Cardiology following
-Cardizem increased to 120 mg twice daily by cardio; patient with in and out of A-fib.
-Echo with normal left ventricular size with vigorous left ventricular systolic function. Ejection fraction 65-70 percent
-Cardiology recommended discontinuation of Eliquis and plan for discharge on aspirin alone given high risk of bleeding complication due to recurrent falls.
-Continue Eliquis while she is in the hospital
# Cellulitis/of Left Lower Leg
- Patient states she has a h/o recurrent cellulitis
-Improving
-Elevation/compression
-On Rocephin
# Hypokalemia
-Replete
#[place]/P fall [place]
Prodromal dizziness complicated with hitting head sustained contusion hematoma Lt forehead hematoma
- NEG HCT
- Fall precautions
- PT/OT
#Benign HTN
HX Fluid retention
- c/w Lisinopril with hold from SBP < 110
- Hold Frusemide, Hydralazine
#HLD
- EXTRACTIVE METALLURGIST atorvastatin
- c/w ASA
Depression
- c/w escitalopram
DVT Px: SQH
Full code
Anticipated Discharge: 24 - 48 hours
Subjective/Interval History
-
Date of Service: November 22, 2024
AFVSS. No new complaints
Objective Data
-
Labs:
Laboratory Results
11/22/24
07:07
WBC Pending
Hgb Pending
Hct Pending
Plt Count Pending
Sodium Pending
Potassium Pending
Chloride Pending
Carbon Dioxide Pending
BUN Pending
Creatinine Pending
Glucose Pending
Calcium Pending
Vital Signs:
Vital Signs
Temp Pulse Resp BP Pulse Ox
98.1 F 95 18 132/79 96
11/22/24 03:10 11/22/24 03:10 11/22/24 03:10 11/22/24 03:10 11/22/24 03:10
I&O
11/21/24 11/22/24 11/23/24
06:59 06:59 07:59
Intake Total 120 / 120 1240 / 1240
Balance 120 / 120 1240 / 1240
Review of Systems
-
History Source: Patient
Respiratory: Denies Trouble Breathing
Cardiac: Denies Chest Pain
Genitourinary: Reports No Symptoms
Musculoskeletal: Reports No Symptoms
Skin: Reports No Symptoms
Physical Exam
-
General: Well Nourished and Appears Chronically Ill
HEENT: Normocephalic
Cardiac: Regular Rhythm and S1/S2
GI: Soft, Nontender and Nondistended
Musculoskeletal: Other (Mild erythema and swelling on the left lower leg; improving)
Skin: Warm, Dry and Other (Healing bruise on the left forehead and around eyes,)
Neuro: Awake, Alert and Oriented
Psych: Calm (Very talkative)
Data Reviewed
-
Labs: Labs Reviewed by me, Discussed with Physician and Discussed with Patient
[2024-11-22 07:22] VITALS: BP 127/64
[2024-11-22] MEDS: CARDIZEM CD 120 MG PO ×2 (07:23→19:27)
[2024-11-22] MEDS: ZESTRIL 5 MG PO (07:23)
[2024-11-22] MEDS: ELIQUIS 5 MG PO ×2 (07:24→19:27)
[2024-11-22] MEDS: PROZAC 10 MG PO (07:24)
[2024-11-22 07:57] LABS: Hematocrit 31.5 % (37.0-47.0); Hemoglobin 10.9 g/dL (12.0-16.0); Mean Corp Hgb Conc. 34.6 g/dL (33.0-37.0); Mean Corpuscular Hgb 32.1 pg (27.0-31.0); Mean Corpuscular Volume 92.6 fL (81.0-99.0); Mean Platelet Volume 10.6 fL (7.4-10.4); Platelet Count 295 10^3/uL (130-400); Red Cell Dist. Width 13.2 % (11.5-14.5); White Blood Cell Count 17.4 10^3/uL (4.8-10.8)
[2024-11-22 08:17] LABS: Blood Urea Nitrogen 10 mg/dl (7-17); Calcium 9.5 mg/dl (8.4-10.2); Carbon Dioxide 26 mmol/L (22-30); Chloride 107 mmol/L (98-107); Estimated Creatinine Clearance 74 ml/min; Glucose 96 mg/dl (70-99); Sodium 138 mmol/L (135-145); eGFR > 60.00
[2024-11-22] MEDS: KCL 270 MEQ IV (09:37)
[2024-11-22 11:35] VITALS: BP 133/63
--- NOTE | 2024-11-22 11:35 | PTCARENOTE ---
11/22- Transferred patient to this RN. Patient is AAOX3, no current complaints. Ecchymoses across eye orbits and L-forehead.
[2024-11-22 12:12] LABS: Magnesium 1.7 mg/dl (1.6-2.3)
[2024-11-22] MEDS: ROCEPHIN 1000 MG IV (13:25)
[2024-11-22] MEDS: STERILE WATER FOR INJECTION 10 ML IV (13:25)
[2024-11-22 15:58] VITALS: BP 132/58
[2024-11-22 19:34] VITALS: BP 131/61
[2024-11-22 23:45] VITALS: BP 138/70
[2024-11-23] VITALS (8 sets, daily range): BP systolic 128–157; BP diastolic 69–87; PULSE 108; O2SAT 96; BMI 30.8
[2024-11-23] MEDS: NSS 1000 IV (01:34)
[2024-11-23 07:14] LABS: Hematocrit 30.9 % (37.0-47.0); Hemoglobin 10.4 g/dL (12.0-16.0); Mean Corp Hgb Conc. 33.7 g/dL (33.0-37.0); Mean Corpuscular Hgb 31.8 pg (27.0-31.0); Mean Corpuscular Volume 94.5 fL (81.0-99.0); Mean Platelet Volume 9.7 fL (7.4-10.4); Platelet Count 346 10^3/uL (130-400); Red Blood Cell Count 3.27 10^6/uL (4.20-5.40); Red Cell Dist. Width 13.6 % (11.5-14.5)
--- NOTE | 2024-11-23 07:23 | W.PN.HOSP.TC ---
Addendum entered and electronically signed by Nakia Marx MD 11/23/24 16:20:
Seen earlier. Late documentation.
I saw and evaluated the patient. I reviewed the resident�s note and agree with findings and plan as documented in the resident�s note except for changes in my documentation
84-year-old female from [facility] presented with mental status change/confusion. Also had a fall
Head CT-mild atrophy. Unchanged
Cervical spine CT-no fracture. Severe degenerative changes with multilevel DJD and grade 1 spondylolisthesis at C7-T1
ECHO-normal LV size and vigorous LV systolic function. Moderate concentric LVH. EF 65 to 70%. Normal RV size and function. Thickened mitral valves and mitral annular calcification and mild MR. Mild . Trace TR
Chest x-ray atelectasis in both lower lobes
Tib Fib and ankle X rays - No acute changes
CVS: S1-S2 irregular
Chest: CTA B/L
Abdomen: Soft, NT / Bowel sounds present
Extremities: Left lower extremity edema and redness noted
skin-ecchymosis around left forehead and also around eyes
# Sepsis secondary to UTI
Urine cultures positive for E. coli
Blood cultures negative
Continue ceftriaxone
# TME secondary to above. Spoke to granddaughter who feels that patient has a speech abnormality and headaches. Will get an MRI of the brain
# A-fib with RVR-new diagnosis
Cardizem drip transitioned to Cardizem CD
Echo as above no change since 2020
Continue Eliquis while hospitalized and discharged on aspirin only secondary to fall risk as per discussion with cardiology
# Left lower extremity cellulitis-continue ceftriaxone. Kalpesh bandages ordered. X ray with no acute changes.
# Fall at [facility] prior to admission
Head trauma sustaining contusion and hematoma of left forehead
Continue PT OT
# Hypertension-continue Cardizem and Lisinopril
# Hyperlipidemia-continue Statin
# Depression-continue Prozac
# 1.0-cm meningioma arising from the left side of the interhemispheric falx and causing mild mass effect on the medial aspect of the left parietal lobe
# GERD/hiatal hernia-continue PPI
# Fibromyalgia
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
# Diverticulosis
# Sleep apnea-continue CPAP
# Ex-smoker
# DVT prophylaxis-currently on Eliquis
# Full code
spoke to raul. She stated that she requested case management for a different rehab/retirement for patient to go to other than [facility].
Raul was updated about atrial fibrillation risks for stroke however with patient's skull fracture after a fall and also with current fall she is not a candidate for anticoagulation. I reviewed cardiology notes also.
Original Note:
Today's Communication/Plan
-
Continue IV antibiotics
PT OT
Replete potassium
Discontinue IV fluid
xray ankle and tib/fib
Assessment / Plan
Assessment / Plan
84-year-old female from [facility] presented for evaluation of confusion
HCT
There is mild cortical atrophy, unchanged
Cx spine CT
There is no evidence of fracture.
severe degenerative changes with multilevel degenerative disc disease and grade 1 spondylolisthesis at C7/T1
CXR: Probable atelectasis in both lower lobes
#Sepsis secondary to to UTI
# Leukocytosis; trending down
- UCx positive for E. coli
- BCx NGTD
- s/p Septic bolus IV NS
- IV CFTZ 6/7
- d/c IV fluids
- Lactic acid within normal limits
- Flu and COVID-negative
# Atrial fibrillation; new onset
-EKG with A-fib with RVR
-s/p 1x Lopressor 2.5 mg
-Cardiology following
-Cardizem increased to 120 mg twice daily by cardio; patient with in and out of A-fib.
-Echo with normal left ventricular size with vigorous left ventricular systolic function. Ejection fraction 65-70 percent
-Cardiology recommended discontinuation of Eliquis and plan for discharge on aspirin alone given high risk of bleeding complication due to recurrent falls.
-Continue Eliquis while she is in the hospital
# Cellulitis of Left Lower Leg
- Patient states she has a h/o recurrent cellulitis
-Improving
-Elevation/compression
-On Rocephin
- xray ankle and tib/fib
# Hypokalemia
-Replete with 20meq po
#S/P fall at NH
Prodromal dizziness complicated with hitting head sustained contusion hematoma Lt forehead hematoma
- NEG HCT
- Fall precautions
- PT/OT
#Benign HTN
HX Fluid retention
- c/w Lisinopril with hold from SBP < 110
- Hold Frusemide, Hydralazine
#HLD
- CARD CLEANER atorvastatin
- c/w ASA
Depression
- c/w escitalopram
DVT Px: SQH
Full code
Anticipated Discharge: Within 24 hours
Subjective/Interval History
-
Date of Service: November 23, 2024
AFVSS. Patient states she is feeling better today. Continues to have frequent urination.
Objective Data
-
Labs:
Laboratory Results
11/23/24
06:56
WBC 15.0 H
Hgb 10.4 L
Hct 30.9 L
Plt Count 346
Sodium Pending
Potassium Pending
Chloride Pending
Carbon Dioxide Pending
BUN Pending
Creatinine Pending
Glucose Pending
Calcium Pending
Vital Signs:
Vital Signs
Temp Pulse Resp BP Pulse Ox
97.6 F 82 18 135/75 97
11/23/24 03:33 11/23/24 03:33 11/23/24 03:33 11/23/24 03:33 11/23/24 03:33
I&O
11/22/24 11/23/24 11/24/24
05:59 06:59 06:59
Intake Total
Balance
Review of Systems
-
History Source: Patient
Respiratory: Denies Trouble Breathing
Cardiac: Denies Chest Pain
Genitourinary: Reports No Symptoms
Musculoskeletal: Reports No Symptoms
Skin: Reports No Symptoms
Physical Exam
-
General: Well Nourished and Appears Chronically Ill
HEENT: Normocephalic
Cardiac: Regular Rhythm and S1/S2
GI: Soft, Nontender and Nondistended
Musculoskeletal: Other (Mild erythema and swelling on the left lower leg; improving)
Skin: Warm, Dry and Other (Ecchymosis left forehead and around eyes,)
Neuro: Awake, Alert and Oriented
Psych: Calm
Data Reviewed
-
Labs: Labs Reviewed by me, Discussed with Physician and Discussed with Patient
[2024-11-23 07:39] LABS: Blood Urea Nitrogen 8 mg/dl (7-17); Calcium 9.6 mg/dl (8.4-10.2); Carbon Dioxide 28 mmol/L (22-30); Chloride 107 mmol/L (98-107); Estimated Creatinine Clearance 75 ml/min; Glucose 132 mg/dl (70-99); Potassium 3.4 mmol/L (3.5-5.1); Sodium 140 mmol/L (135-145); eGFR > 60.00
[2024-11-23] MEDS: CARDIZEM CD 120 MG PO ×2 (08:45→20:01)
[2024-11-23] MEDS: ELIQUIS 5 MG PO ×2 (08:45→20:01)
[2024-11-23] MEDS: PROZAC 10 MG PO (08:45)
[2024-11-23] MEDS: ZESTRIL 5 MG PO (08:46)
[2024-11-23] MEDS: TYLENOL 650 MG PO (09:01)
[2024-11-23] MEDS: KCL 20 MEQ PO (09:41)
[2024-11-23] MEDS: MAGNESIUM OXIDE 500 MG PO (09:41)
[2024-11-23] MEDS: NSS IV (09:41)
[2024-11-23] MEDS: ROCEPHIN 1000 MG IV (14:59)
[2024-11-23] MEDS: STERILE WATER FOR INJECTION 10 ML IV (15:00)
[2024-11-24 03:37] VITALS: BP 135/75
[2024-11-24] MEDS: TYLENOL 650 MG PO ×2 (03:43→20:05)
[2024-11-24 06:00] VITALS: BMI 30.3
[2024-11-24 07:28] VITALS: BP 148/77
[2024-11-24] MEDS: ELIQUIS 5 MG PO ×2 (07:44→20:01)
[2024-11-24] MEDS: PROZAC 10 MG PO (07:44)
[2024-11-24] MEDS: MAGNESIUM OXIDE 500 MG PO (07:44)
[2024-11-24] MEDS: ZESTRIL 5 MG PO (07:45)
[2024-11-24] MEDS: CARDIZEM CD 120 MG PO ×2 (07:45→20:02)
[2024-11-24 08:56] LABS: Hematocrit 31.2 % (37.0-47.0); Hemoglobin 10.6 g/dL (12.0-16.0); Mean Corpuscular Volume 94.3 fL (81.0-99.0); Mean Platelet Volume 9.8 fL (7.4-10.4); Platelet Count 431 10^3/uL (130-400); Red Blood Cell Count 3.31 10^6/uL (4.20-5.40); Red Cell Dist. Width 13.6 % (11.5-14.5); White Blood Cell Count 14.4 10^3/uL (4.8-10.8)
[2024-11-24 09:14] LABS: Blood Urea Nitrogen 7 mg/dl (7-17); Calcium 9.7 mg/dl (8.4-10.2); Carbon Dioxide 27 mmol/L (22-30); Chloride 106 mmol/L (98-107); Estimated Creatinine Clearance 74 ml/min; Glucose 128 mg/dl (70-99); Potassium 3.3 mmol/L (3.5-5.1); Sodium 140 mmol/L (135-145); eGFR > 60.00
--- NOTE | 2024-11-24 09:47 | CM ---
Chart reviewed. Patient is stable for d/c. Patient requires skilled rehab. Patient's granddaughter, Stacy, is not wanting her to return to [facility]. LINDA spoke w/ Stacy to review LTC referral determinations, no LTC beds available at
multiple facilities referred to. LINDA informed Stacy that [facility] is able to work w/ her to transfer patient to another facility, Stacy stated lining caser there is not helpful. Stacy stated she has to speak w/ her family to decide what to do as
she has a fear that patient's cellulitis will not be treated properly if she returns to [facility].
--- NOTE | 2024-11-24 09:52 | W.PN.HOSP.TC ---
Today's Communication/Plan
-
MRI brain pending. Discontinue antibiotics. Discharge to SNF when bed available.
Assessment / Plan
Assessment / Plan
84-year-old female from [facility] presented for evaluation of confusion and a fall
#Sepsis secondary to to UTI
# Leukocytosis; trending down
- UCx positive for E. coli
- BCx from admission with no growth
- On day 7/7 of IV ceftriaxone. Will discontinue.
- Lactic acid within normal limits
- Flu and COVID-negative
# Cellulitis of Left Lower Leg
-Clinically improving on ceftriaxone. Will discontinue at this time. Observe off antibiotics.
-Elevation/compression
# Atrial fibrillation; new onset
-EKG with A-fib with RVR
-Cardiology following. On cardizem 120mg BID.
-Echo with normal left ventricular size with vigorous left ventricular systolic function. Ejection fraction 65-70 percent
-Continue Eliquis while inpatient. However plan to discontinue eliquis at discharge, and continue aspirin alone given high risk of bleeding complication due to recurrent falls.
# Hypokalemia
- Supplement K prn
- Follow BMP
#S/P fall at NH
Prodromal dizziness complicated with hitting head sustained contusion hematoma Lt forehead hematoma
- Head CT negative for intracranial hemorrhage, skull fracture. Partially calcified L meningioma, unchanged; mild cortical atrophy, unchanged.
- Fall precautions
- PT/OT
- Given family concerns for changes in speech prior to admission, will check brain MRI
#Benign HTN
HX Fluid retention
- Continue Lisinopril with hold from SBP < 110
- Home metoprolol, amlodipine, hydralazine held this admission.
HLD- continue home atorvastatin
Depression- continue home fluoxetine; mood stable, denies current depression
GERD/hiatal hernia- continue PPI
Sleep apnea- Continue home cpap
Code status: Full
VTE ppx: eliquis
Diet: Regular
Dispo planning: Discharge to SNF when bed available
Anticipated Discharge: Within 24 hours
Subjective/Interval History
-
Date of Service: November 24, 2024
No acute events overnight. Reports dizziness, which is at her baseline since head injury in 2022.
Objective Data
-
Labs:
Laboratory Results
11/24/24
08:28
WBC 14.4 H
Hgb 10.6 L
Hct 31.2 L
Plt Count 431 H D
Sodium 140
Potassium 3.3 L
Chloride 106
Carbon Dioxide 27
BUN 7
Creatinine 0.5 L
Glucose 128 H
Calcium 9.7
Vital Signs:
Vital Signs
Temp Pulse Resp BP Pulse Ox
98.2 F 80 16 148/77 97
11/24/24 07:28 11/24/24 07:45 11/24/24 07:28 11/24/24 07:45 11/24/24 07:28
I&O
11/23/24 11/24/24 11/25/24
06:59 06:59 06:59
Intake Total 60 / 60
Balance 60 / 60
Review of Systems
-
History Source: Patient
All other systems: Reviewed and negative
Physical Exam
-
General: No Apparent Distress, Comfortable and Conversant; Negative Pain
HEENT: Normocephalic and Other (ecchymosis of forehead and around eyes bilaterally)
Respiratory: Clear to Auscultation, Non Labored Respirations and Decreased Breath Sounds (bilaterally at bases); Negative Wheezes or Crackles
Cardiac: S1/S2 and Irregular Rhythm
GI: Soft, Nontender, Nondistended and Normal Bowel Sounds
Musculoskeletal: Edema, Left Lower Extrem
Skin: Warm, Dry and Other (LLE erythematous, limited to anterior hanna; abrasion present without drainage)
Neuro: Awake, Alert, AO x 3 and Nonfocal/Grossly Intact
Psych: Calm and Intact Judgement/Insight; Negative Depressed
Data Reviewed
-
Diagnostic Radiology: Report Reviewed by me
CT Scan: Report Reviewed by me
MRI: Report Reviewed by me
Labs: Labs Reviewed by me
[2024-11-24 11:18] VITALS: BP 142/82
[2024-11-24] MEDS: STERILE WATER FOR INJECTION 10 ML IV (14:10)
[2024-11-24] MEDS: ROCEPHIN 1000 MG IV (14:10)
[2024-11-24] MEDS: KCL 270 MEQ IV (14:10)
--- NOTE | 2024-11-24 15:00 | W.PN.UPDATE ---
Update Note
Progress Note Update
84-year-old female from [facility] presented with mental status change/confusion. Also had a fall
Head CT-mild atrophy. Unchanged
Cervical spine CT-no fracture. Severe degenerative changes with multilevel DJD and grade 1 spondylolisthesis at C7-T1
ECHO-normal LV size and vigorous LV systolic function. Moderate concentric LVH. EF 65 to 70%. Normal RV size and function. Thickened mitral valves and mitral annular calcification and mild MR. Mild . Trace TR
Chest x-ray atelectasis in both lower lobes
Tib Fib and ankle X rays - No acute changes
MRI of the brain-no acute changes. Stable 1 cm posterior parafalcine meningioma. Moderate atrophy. Small vessel ischemic disease. Partly empty sella compression and cervical spinal cord DJD C3-C4
CVS: S1-S2 irregular
Chest: CTA B/L
Abdomen: Soft, NT / Bowel sounds present
Extremities: Left lower extremity edema and redness Much better today.
skin-ecchymosis around left forehead and also around eyes
# Sepsis secondary to UTI
Urine cultures positive for E. coli
Blood cultures negative
We can stop ceftriaxone after today's dose.
# TME secondary to above. Spoke to granddaughter who feels that patient has a speech abnormality and headaches. MRI of the brain, n o acute changes
# A-fib with RVR-new diagnosis
Cardizem drip transitioned to Cardizem CD
Echo as above no change since 2020
Continue Eliquis while hospitalized and discharged on aspirin only secondary to fall risk as per discussion with cardiology
# Left lower extremity cellulitis-continue ceftriaxone. Kalpesh bandages ordered. X ray with no acute changes.
# [facility] prior to admission
Head trauma sustaining contusion and hematoma of left forehead
Continue PT OT
# Hypertension-continue Cardizem and Lisinopril
# Hyperlipidemia-continue Statin
# Depression-continue Prozac
# 1.0-cm meningioma arising from the left side of the interhemispheric falx and causing mild mass effect on the medial aspect of the left parietal lobe
# GERD/hiatal hernia-continue PPI
# Fibromyalgia
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
# Diverticulosis
# Sleep apnea-continue CPAP
# Ex-smoker
# DVT prophylaxis-currently on Eliquis
# Full code
Discussed with case management. Working on getting patient to rehab
Medically stable for discharge
[2024-11-24 15:07] VITALS: BP 147/67
[2024-11-24 19:41] VITALS: BP 141/75
[2024-11-24 23:18] VITALS: BP 131/74
[2024-11-25 03:50] VITALS: BP 124/59
[2024-11-25 06:00] VITALS: BMI 30.3
[2024-11-25 07:00] VITALS: BP 122/79
[2024-11-25 08:37] LABS: Hematocrit 32.9 % (37.0-47.0); Hemoglobin 10.8 g/dL (12.0-16.0); Mean Corp Hgb Conc. 32.8 g/dL (33.0-37.0); Mean Corpuscular Hgb 31.4 pg (27.0-31.0); Mean Corpuscular Volume 95.6 fL (81.0-99.0); Mean Platelet Volume 9.3 fL (7.4-10.4); Platelet Count 476 10^3/uL (130-400); Red Blood Cell Count 3.44 10^6/uL (4.20-5.40); Red Cell Dist. Width 13.9 % (11.5-14.5); White Blood Cell Count 12.4 10^3/uL (4.8-10.8)
[2024-11-25 08:53] LABS: Blood Urea Nitrogen 7 mg/dl (7-17); Calcium 9.8 mg/dl (8.4-10.2); Carbon Dioxide 27 mmol/L (22-30); Chloride 106 mmol/L (98-107); Estimated Creatinine Clearance 74 ml/min; Glucose 127 mg/dl (70-99); Magnesium 1.7 mg/dl (1.6-2.3); Potassium 3.7 mmol/L (3.5-5.1); Sodium 138 mmol/L (135-145); eGFR > 60.00
--- NOTE | 2024-11-25 09:33 | W.PN.HOSP.TC ---
Addendum entered and electronically signed by Nakia Marx MD 11/25/24 16:31:
spoke to Grand daughter and updated.
Addendum entered and electronically signed by Nakia Marx MD 11/25/24 15:48:
I saw and evaluated the patient. I reviewed the resident�s note and agree with findings and plan as documented in the resident�s note.
Patient just got back from ultrasound
Cardiovascular system S1-S2 regular
Chest clear to auscultation
Redness of left lower extremity better
Continue Kalpesh bandages
Ultrasound ordered this morning because of tenderness-no evidence of DVT
D/W RN
Discussed with case management
Medically stable for discharge to rehab
Original Note:
Today's Communication/Plan
-
Check LE US. Anticipate discharge to SNF.
Assessment / Plan
Assessment / Plan
84-year-old female from [facility] presented for evaluation of confusion and a fall
#Sepsis secondary to to UTI
#Toxic metabolic encephalopathy due to above
# Leukocytosis; trending down
- UCx positive for E. coli. S/p 7 day course of IV ceftriaxone, completed 11/24
- BCx from admission with no growth, lactic acid wnl, flu/covid neg
- Continue to trend cbc, follow temperature curve, monitor off antibiotics
# Cellulitis of Left Lower Leg
-Clinically improved with course of ceftriaxone, as above.
- Continue to observe off antibiotics, as above.
- Elevation/compression
- For persistent swelling of left lower leg and calf tenderness, will check bilat LE venous US to evaluate for DVT.
# Atrial fibrillation; new onset
-EKG with A-fib with RVR on admission
- Evaluated by cardiology, appreciate recs. S/p IV diltiazem drip, then started on PO cardizem.
-Echo with normal left ventricular size with vigorous left ventricular systolic function. Ejection fraction 65-70 percent
-Continue Eliquis while inpatient. However plan to discontinue eliquis at discharge, and continue aspirin alone given high risk of bleeding complication due to recurrent falls.
- Rate adequately controlled, asymptomatic. Continue cardizem 120mg BID.
#Ambulatory dysfunction, [facility]
Prodromal dizziness complicated with hitting head sustained contusion hematoma Lt forehead hematoma
- Head CT negative for intracranial hemorrhage, skull fracture. Partially calcified L meningioma, unchanged; mild cortical atrophy, unchanged.
- Brain MRI negative for acute intracranial hemorrhage or infarction; Possible small old microhemorrhage; stable findings as above; DDD with compression of cervical spinal cord C3-C4, C4-C5.
- Continue PT/OT. Fall precautions
#Benign HTN
HX Fluid retention
- Continue Lisinopril with hold from SBP < 110
- Home metoprolol, amlodipine, hydralazine held this admission.
Hypokalemia- supplement K prn, follow BMP
HLD- continue home atorvastatin
Depression- continue home fluoxetine; mood stable, denies current depression
GERD/hiatal hernia- continue PPI
Sleep apnea- Continue home cpap
Code status: Full
VTE ppx: eliquis
Diet: Regular
Dispo planning: Anticipate discharge to SNF when bed available after ultrasound
Anticipated Discharge: Within 24 hours
Subjective/Interval History
-
Date of Service: November 25, 2024
No acute events overnight. Reports dizziness, which has been her baseline since head injury in 2022. No complaints, ROS negative-- denies chest pain, SOB, abd pain, nausea, vomiting, diarrhea, constipation. No pain in left leg.
Objective Data
-
Labs:
Laboratory Results
11/25/24
08:25
WBC 12.4 H
Hgb 10.8 L
Hct 32.9 L
Plt Count 476 H
Sodium 138
Potassium 3.7
Chloride 106
Carbon Dioxide 27
BUN 7
Creatinine 0.5 L
Glucose 127 H
Calcium 9.8
Vital Signs:
Vital Signs
Temp Pulse Resp BP Pulse Ox
98.2 F 84 20 122/79 96
11/25/24 07:00 11/25/24 07:00 11/25/24 07:00 11/25/24 07:00 11/25/24 07:00
I&O
11/24/24 11/25/24 11/26/24
06:59 06:59 06:59
Intake Total 60 / 60 600 / 600
Balance 60 / 60 600 / 600
Review of Systems
-
History Source: Patient
All other systems: Reviewed and negative
Physical Exam
-
General: No Apparent Distress, Comfortable and Conversant; Negative Pain
HEENT: Normocephalic and Other (ecchymosis of forehead and around eyes bilaterally)
Respiratory: Clear to Auscultation, Non Labored Respirations and Decreased Breath Sounds (bilaterally at bases); Negative Wheezes or Crackles
Cardiac: S1/S2 and Irregular Rhythm
GI: Soft, Nontender, Nondistended and Normal Bowel Sounds
Musculoskeletal: Edema, Left Lower Extrem and Other (calves tender to palpation bilaterally, worse on left)
Skin: Warm, Dry and Other (LLE erythematous, limited to anterior hanna; abrasion present without drainage)
Neuro: Awake, Alert, AO x 3 and Nonfocal/Grossly Intact
Psych: Calm and Intact Judgement/Insight
Data Reviewed
-
Diagnostic Radiology: Report Reviewed by me
CT Scan: Report Reviewed by me
MRI: Report Reviewed by me
Labs: Labs Reviewed by me
[2024-11-25] MEDS: CARDIZEM CD 120 MG PO ×2 (10:29→19:54)
[2024-11-25] MEDS: ZESTRIL 5 MG PO (10:29)
[2024-11-25] MEDS: PROZAC 10 MG PO (10:30)
[2024-11-25] MEDS: ELIQUIS 5 MG PO ×2 (10:30→19:54)
[2024-11-25] MEDS: MAGNESIUM OXIDE 500 MG PO (10:30)
[2024-11-25 11:17] VITALS: BP 102/56
[2024-11-25 13:01] VITALS: BMI 30.3
[2024-11-25 16:10] VITALS: BP 112/79
--- NOTE | 2024-11-25 16:40 | PTCARENOTE ---
0605 Noted on heart monitor pt continue Atrial Fib Rhythm, heart rate briefly decrease to 44. Checked pt, pt sleeping. Heart rate increase to 60's.
Dr. Marx notified and recommended to continue telemetry, continue to monitor pt closely.
[2024-11-25 19:58] VITALS: BP 136/57
[2024-11-25 23:08] VITALS: BP 137/69
[2024-11-26] VITALS (7 sets, daily range): BP systolic 127–163; BP diastolic 66–89; BMI 30.1
[2024-11-26] MEDS: TYLENOL 650 MG PO (04:30)
[2024-11-26 08:12] LABS: Hematocrit 34.8 % (37.0-47.0); Hemoglobin 11.4 g/dL (12.0-16.0); Mean Corp Hgb Conc. 32.8 g/dL (33.0-37.0); Mean Corpuscular Volume 97.8 fL (81.0-99.0); Mean Platelet Volume 9.4 fL (7.4-10.4); Platelet Count 514 10^3/uL (130-400); Red Blood Cell Count 3.56 10^6/uL (4.20-5.40); Red Cell Dist. Width 13.9 % (11.5-14.5); White Blood Cell Count 13.5 10^3/uL (4.8-10.8)
[2024-11-26 08:47] LABS: Blood Urea Nitrogen 9 mg/dl (7-17); Calcium 10.1 mg/dl (8.4-10.2); Carbon Dioxide 27 mmol/L (22-30); Chloride 101 mmol/L (98-107); Estimated Creatinine Clearance 74 ml/min; Glucose 128 mg/dl (70-99); Magnesium 1.9 mg/dl (1.6-2.3); Potassium 3.8 mmol/L (3.5-5.1); Sodium 139 mmol/L (135-145); eGFR > 60.00
--- NOTE | 2024-11-26 09:09 | W.PN.HOSP.TC ---
Today's Communication/Plan
-
Discharge to SNF, awaiting availability.
Assessment / Plan
Assessment / Plan
84-year-old female from [facility] presented for evaluation of confusion and a fall
#Sepsis secondary to to UTI- resolved
#Toxic metabolic encephalopathy due to above- resolved
# Leukocytosis; trending down
- UCx positive for E. coli. S/p 7 day course of IV ceftriaxone, completed 11/24
- BCx from admission with no growth, lactic acid wnl, flu/covid neg
- Follow temperature curve, observe off antibiotics
- WBC overall trending down vs admission. Will discontinue daily cbc. Suspect minor increase today hemoconcentration, not clinically significant. No signs/symptoms new/ongoing infection.
- Stable for discharge to SNF when bed available. Discussed with CM, pt also requires LTC placement along with SNF prior to hospital discharge. Appreciate CM involvement.
- Called granddaughter today, no answer.
# Cellulitis of Left Lower Leg
-Clinically improved with course of ceftriaxone as above.
- Significantly improved physical exam, even after discontinuation of antibiotics.
- Continue to observe off antibiotics, as above.
- Bilateral LE US negative for DVT 11/25. Noted prominent lymph node in left groin, though still remains in normal range; suspect reactive secondary to the recent infection of lower leg.
- Continue elevation/compression as needed for swelling.
# Atrial fibrillation; new onset
-EKG with A-fib with RVR on admission
- Evaluated by cardiology, appreciate recs. S/p IV diltiazem drip, then started on PO cardizem.
-Echo with normal left ventricular size with vigorous left ventricular systolic function. Ejection fraction 65-70 percent
-Continue Eliquis while inpatient. However plan to discontinue eliquis at discharge, and continue aspirin alone given high risk of bleeding complication due to recurrent falls.
- Rate adequately controlled, asymptomatic. Continue cardizem 120mg BID.
- Episode of bradycardia while asleep- continue to monitor on telemetry and will adjust medications prn
#Ambulatory dysfunction, [facility]
Prodromal dizziness complicated with hitting head sustained contusion hematoma Lt forehead hematoma
- Head CT negative for intracranial hemorrhage, skull fracture. Partially calcified L meningioma, unchanged; mild cortical atrophy, unchanged.
- Brain MRI negative for acute intracranial hemorrhage or infarction; Possible small old microhemorrhage; stable findings as above; DDD with compression of cervical spinal cord C3-C4, C4-C5.
- Continue PT/OT. Fall precautions
#Benign HTN
HX Fluid retention
- Continue Lisinopril 5mg daily; hold for SBP < 110
- Home metoprolol, amlodipine, hydralazine held this admission. Plan to discontinue these at discharge and defer to PCP in restarting based on outpatient BPs with new cardizem.
Hypokalemia- s/p K supplementation prn. K wnl, will discontinue daily BMP.
HLD- continue home atorvastatin
Depression- continue home fluoxetine; mood stable, denies current depression
GERD/hiatal hernia- continue PPI
Sleep apnea- Continue home cpap
Code status: Full
VTE ppx: eliquis
Diet: Regular
Dispo planning: Discharge to SNF when bed available
Anticipated Discharge: Today
Subjective/Interval History
-
Date of Service: November 26, 2024
No acute events overnight. Multiple complaints this morning including dizziness which is her baseline, chronic neck and back pain. She reports some chest tightness that she attributes to the classroom monitor. She denies chest pain, shortness of
breath, palpitations, abdominal pain, diarrhea, constipation.
Objective Data
-
Labs:
Laboratory Results
11/26/24
06:40
WBC 13.5 H
Hgb 11.4 L
Hct 34.8 L
Plt Count 514 H
Sodium 139
Potassium 3.8
Chloride 101
Carbon Dioxide 27
BUN 9
Creatinine 0.6
Glucose 128 H
Calcium 10.1
Vital Signs:
Vital Signs
Temp Pulse Resp BP Pulse Ox
97.8 F 82 20 157/87 96
11/26/24 07:00 11/26/24 07:00 11/26/24 07:00 11/26/24 07:00 11/26/24 07:00
I&O
11/25/24 11/26/24 11/27/24
06:59 06:59 06:59
Intake Total 600 / 600 480 / 480
Balance 600 / 600 480 / 480
Review of Systems
-
History Source: Patient
All other systems: Reviewed and negative
Physical Exam
-
General: No Apparent Distress, Comfortable and Conversant; Negative Pain
HEENT: Normocephalic and Other (ecchymosis of forehead and around eyes bilaterally-- improving )
Respiratory: Clear to Auscultation, Non Labored Respirations and Decreased Breath Sounds (bilaterally at bases); Negative Wheezes or Crackles
Cardiac: S1/S2 and Irregular Rhythm
GI: Soft, Nontender, Nondistended and Normal Bowel Sounds
Musculoskeletal: No Edema
Skin: Warm, Dry and Other (LLE erythematous, limited to anterior hanna and improving; abrasion covered with dressing, clean/dry/intact)
Neuro: Awake, Alert, AO x 3 and Nonfocal/Grossly Intact
Psych: Calm and Intact Judgement/Insight
Data Reviewed
-
Diagnostic Radiology: Report Reviewed by me
CT Scan: Report Reviewed by me
Ultrasound: Report Reviewed by me
MRI: Report Reviewed by me
Labs: Labs Reviewed by me
[2024-11-26] MEDS: ZESTRIL 5 MG PO (09:26)
[2024-11-26] MEDS: MAGNESIUM OXIDE 500 MG PO (09:27)
[2024-11-26] MEDS: PROZAC 10 MG PO (09:27)
[2024-11-26] MEDS: CARDIZEM CD 120 MG PO ×2 (09:27→19:46)
[2024-11-26] MEDS: ELIQUIS 5 MG PO ×2 (09:27→19:46)
--- NOTE | 2024-11-26 09:34 | CM ---
CM spoke w/ patient's granddaughter, Stacy, regarding d/c as patient is medically stable. Stacy shared she did discuss plan w/ her family and remains unsure what to do. Stacy stated again her fear that patient's cellulitis will be untreated and
patient has complained to her in the past. Stacy agreeable to CM sending additional LTC referrals. [facility].
CM followed up w/ Stacy w/ facility determinations and multiple acceptances for both STR and LTC bed availability. [facility], [facility], [facility], [facility], [facility], [facility], and [facility] are
willing to accept patient. Stacy stated she will discuss these facilities w/ her family and will call CM back.
Updated hospitalist
Plan: SNF w/ transition to LTC. Accepting facilities shared w/ patient's granddaughter.
[2024-11-26] MEDS: MAALOX 30 ML PO (13:15)
[2024-11-26] MEDS: ANTIVERT 25 MG PO (13:15)
--- NOTE | 2024-11-26 13:24 | W.PN.UPDATE ---
Update Note
Progress Note Update
I saw and evaluated the patient. I reviewed the resident�s note and agree with findings and plan as documented in the resident�s note except for changes in my documentation
84-year-old female from [facility] presented with mental status change/confusion. Also had a fall
Head CT-mild atrophy. Unchanged
Cervical spine CT-no fracture. Severe degenerative changes with multilevel DJD and grade 1 spondylolisthesis at C7-T1
ECHO-normal LV size and vigorous LV systolic function. Moderate concentric LVH. EF 65 to 70%. Normal RV size and function. Thickened mitral valves and mitral annular calcification and mild MR. Mild . Trace TR
Chest x-ray atelectasis in both lower lobes
Tib Fib and ankle X rays - No acute changes
MRI of the brain-no acute changes. Stable 1 cm posterior parafalcine meningioma. Moderate atrophy. Small vessel ischemic disease. Partly empty sella compression and cervical spinal cord DJD C3-C4
CVS: S1-S2 irregular
Chest: CTA B/L
Abdomen: Soft, NT / Bowel sounds present
skin-ecchymosis around left forehead and also around eyes
# Sepsis secondary to UTI
Urine cultures positive for E. coli
Blood cultures negative
Completed ceftriaxone course
# TME secondary to above. Spoke to granddaughter who feels that patient has a speech abnormality and headaches. MRI of the brain, no acute changes
# A-fib with RVR-new diagnosis
Cardizem drip transitioned to Cardizem CD
Echo as above no change since 2020
Continue Eliquis while hospitalized and discharged on aspirin only secondary to fall risk as per discussion with cardiology
# Left lower extremity cellulitis-completed ceftriaxone. Kalpesh bandages ordered. X ray with no acute changes. Ultrasound negative for DVT
# Fall at [facility] prior to admission
Head trauma sustaining contusion and hematoma of left forehead
Continue PT OT
Meclizine prn
# Heartburn symptoms-Maalox ordered
# Hypertension-continue Cardizem and Lisinopril
# Hyperlipidemia-continue Statin
# Depression-continue Prozac
# 1.0-cm meningioma arising from the left side of the interhemispheric falx and causing mild mass effect on the medial aspect of the left parietal lobe
# GERD/hiatal hernia-continue PPI
# Fibromyalgia
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
# Diverticulosis
# Sleep apnea-continue CPAP
# Ex-smoker
# DVT prophylaxis-currently on Eliquis
# Full code
Discussed with case management. Working on getting patient to rehab
Medically stable for discharge
[2024-11-27 06:00] VITALS: BMI 28.8
[2024-11-27 07:00] VITALS: BP 148/71
[2024-11-27] MEDS: CARDIZEM CD 120 MG PO ×2 (09:15→19:15)
[2024-11-27] MEDS: PROZAC 10 MG PO (09:17)
[2024-11-27] MEDS: ZESTRIL 5 MG PO (09:17)
[2024-11-27] MEDS: ELIQUIS 5 MG PO ×2 (09:17→19:15)
[2024-11-27] MEDS: MAGNESIUM OXIDE 500 MG PO (09:17)
[2024-11-27] MEDS: TYLENOL 650 MG PO (09:22)
--- NOTE | 2024-11-27 09:25 | CM ---
CM followed up w/ patient's granddaughter, Stacy, on reviews of accepting facilities for rehab and LTC. CM stated two facilities left her a message yesterday and inquired if she has spoken w/ them and/or her family. Stacy stated she hasn't gotten
the chance to review any of the accepting facilities but will make the effort today as she is the primary person handling things for patient as well as caring for her four children. CM empathized w/ Stacy's circumstance but cont to share that
patient has been medically stable for d/c and the need to be urgent in deciding on a facility. CM stated patient cannot cont to remain in the hospital if there are facilities that are willing to accept her. Stacy understood this and stated she will
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 CM asked for Stacy to call back today for an update.
Plan: SNF w/ transition to LTC. Family needs to decide on a facility
--- NOTE | 2024-11-27 11:32 | W.PN.HOSP.TC ---
Addendum entered and electronically signed by Eunice Nichols MD, Resident 11/27/24 17:28:
Discussed discharge plan with patient-- she eager to go back to [place] and says she loves it there. She does not want to move to a different fci. I called granddaughter Stacy and discussed this option again-- she supports Jose's
preference and approves discharge to [facility]. Informed her that unfortunately it's too late in day to arrange this today, and will be the goal for tomorrow. Patient and granddaughter both understanding and in agreement with plan. Will
provide updates to CM.
Addendum entered and electronically signed by Nakia Marx MD 11/27/24 15:39:
I saw and evaluated the patient. I reviewed the resident�s note and agree with findings and plan as documented in the resident�s note.
Seen earlier today mentation
Apart from her chronic dizziness no other symptoms
Exam unchanged from yesterday
Still waiting for rehab placement
Original Note:
Today's Communication/Plan
-
Discharge to SNF.
Assessment / Plan
Assessment / Plan
84-year-old female from [facility] presented for evaluation of confusion and a fall
#Sepsis secondary to to UTI- resolved
#Toxic metabolic encephalopathy due to above- resolved
# Leukocytosis; trending down
- UCx positive for E. coli. S/p 7 day course of IV ceftriaxone, completed 11/24
- BCx from admission with no growth, lactic acid wnl, flu/covid neg
- Follow temperature curve, observe off antibiotics
- WBC overall trending down vs admission. No need to trend daily. No signs/symptoms new/ongoing infection.
- Stable for discharge to SNF when bed available. Discussed with CM, pt also requires LTC placement along with SNF prior to hospital discharge. Appreciate CM involvement.
-Spoke with granddaughter today, updated on progress. Discussed benefits of discharging to SNF sooner rather than later. She is understanding, will call her family at noon today, and call us back with her decision regarding SNF location. Discussed
with CM.
# Cellulitis of Left Lower Leg
-Clinically improved with course of ceftriaxone as above.
- Significantly improved physical exam, even after discontinuation of antibiotics.
- Continue to observe off antibiotics, as above.
- Bilateral LE US negative for DVT 11/25. Noted prominent lymph node in left groin, though still remains in normal range; suspect reactive secondary to the recent infection of lower leg.
- Continue elevation/compression as needed for swelling.
# Atrial fibrillation; new onset
-EKG with A-fib with RVR on admission
- Evaluated by cardiology, appreciate recs. S/p IV diltiazem drip, then started on PO cardizem.
-Echo with normal left ventricular size with vigorous left ventricular systolic function. Ejection fraction 65-70 percent
-Continue Eliquis while inpatient. However plan to discontinue eliquis at discharge, and continue aspirin alone given high risk of bleeding complication due to recurrent falls.
- Rate adequately controlled, asymptomatic. Continue cardizem 120mg BID.
- Stable, met requirements to discontinue telemetry.
#Ambulatory dysfunction[facility]
Prodromal dizziness complicated with hitting head sustained contusion hematoma Lt forehead hematoma
- Head CT negative for intracranial hemorrhage, skull fracture. Partially calcified L meningioma, unchanged; mild cortical atrophy, unchanged.
- Brain MRI negative for acute intracranial hemorrhage or infarction; Possible small old microhemorrhage; stable findings as above; DDD with compression of cervical spinal cord C3-C4, C4-C5.
- Continue PT/OT. Fall precautions
#Benign HTN
HX Fluid retention
- Continue Lisinopril 5mg daily; hold for SBP < 110
- Home metoprolol, amlodipine, hydralazine held this admission. Plan to discontinue these at discharge and defer to PCP in restarting based on outpatient BPs with new cardizem.
Hypokalemia- s/p K supplementation prn. K wnl, no need to trend daily.
HLD- continue home atorvastatin
Depression- continue home fluoxetine; mood stable, denies current depression
GERD/hiatal hernia- continue PPI
Sleep apnea- Continue home cpap
Code status: Full
VTE ppx: eliquis
Diet: Regular
Dispo planning: Discharge to SNF when bed available
Anticipated Discharge: Today
Subjective/Interval History
-
Date of Service: November 27, 2024
No acute events overnight. Reports chronic dizziness and neck pain, at her baseline.
Objective Data
-
Vital Signs:
Vital Signs
Temp Pulse Resp BP Pulse Ox
98 F 73 21 148/71 95
11/27/24 07:00 11/27/24 09:15 11/27/24 07:00 11/27/24 09:15 11/27/24 07:00
I&O
11/26/24 11/27/24 11/28/24
06:59 06:59 06:59
Intake Total 480 / 480 360 / 360
Balance 480 / 480 360 / 360
Review of Systems
-
History Source: Patient
All other systems: Reviewed and negative
Physical Exam
-
General: No Apparent Distress, Comfortable and Conversant; Negative Pain
HEENT: Normocephalic and Other (ecchymosis of forehead and around eyes bilaterally-- improving )
Respiratory: Clear to Auscultation, Non Labored Respirations, Decreased Breath Sounds (bilaterally at bases) and Other (IS at bedside); Negative Wheezes or Crackles
Cardiac: S1/S2 and Irregular Rhythm
GI: Soft, Nontender, Nondistended and Normal Bowel Sounds
Musculoskeletal: Edema, Left Lower Extrem (+1 edema left lower leg)
Skin: Warm, Dry and Other (LLE redness improving; abrasion present)
Neuro: Awake, Alert, AO x 3 and Nonfocal/Grossly Intact
Psych: Calm and Intact Judgement/Insight
Data Reviewed
-
Diagnostic Radiology: Report Reviewed by me
CT Scan: Report Reviewed by me
Ultrasound: Report Reviewed by me
MRI: Report Reviewed by me
Labs: Labs Reviewed by me
[2024-11-27 13:21] VITALS: BP 161/66; PULSE 92; O2SAT 96
[2024-11-27 15:00] VITALS: BP 136/76
[2024-11-27] MEDS: ANTIVERT 25 MG PO (16:04)
[2024-11-27] MEDS: PROTONIX 40 MG PO (16:04)
[2024-11-27 23:15] VITALS: BP 132/77
[2024-11-27 23:56] VITALS: BP 132/77
[2024-11-28] MEDS: ANTIVERT 25 MG PO ×2 (01:30→10:08)
[2024-11-28 06:00] VITALS: BMI 28.5
[2024-11-28 07:00] VITALS: BP 155/76
--- NOTE | 2024-11-28 08:29 | W.PN.HOSP.TC ---
Addendum entered and electronically signed by Nakia Marx MD 11/28/24 14:33:
I saw and evaluated the patient. I reviewed the resident�s note and agree with findings and plan as documented in the resident�s note.
Patient has a chronic dizziness
Exam mostly unremarkable except for ecchymosis on the face. No nystagmus. Left lower extremity looks Much better no redness or edema. Neuroexam nonfocal. Cardiovascular system S1-S2 appreciated, irregular
I discussed with nursing no new symptoms reported.
In the neck which comes into her arms and back from her neck
Patient is looking forward to going to [facility].
In regards to her UTI she completed antibiotics for UTI as well as cellulitis
Atrial fibrillation is new onset this admission however per cardiology discussion plan is to continue with Cardizem and no Eliquis at discharge given her significant falls. For the dizziness likely secondary to concussion or vertigo we will
prescribe her meclizine.
Resident physician discussed with patient's niece today
More than 30 minutes spent in discharge including
Final examination of the patient
Summarizing hospital stay
Instructions for continuing care to all relevant caregivers
Preparation of discharge records, prescriptions, and referral forms
Total time spent (in minutes): 38 min
Original Note:
Today's Communication/Plan
-
Discharge to SNF today
Assessment / Plan
Assessment / Plan
84-year-old female from [facility] presented for evaluation of confusion and a fall
#Sepsis secondary to to UTI- resolved
#Toxic metabolic encephalopathy due to above- resolved
# Leukocytosis; trending down
- UCx positive for E. coli. S/p 7 day course of IV ceftriaxone, completed 11/24
- BCx from admission with no growth, lactic acid wnl, flu/covid neg
- Follow temperature curve, observe off antibiotics
- WBC overall trending down vs admission. No need to trend daily. No signs/symptoms new/ongoing infection.
- Stable for discharge to SNF today. Granddaughter updated today. Transportation per CM, Appreciate CM involvement.
# Cellulitis of Left Lower Leg
-Clinically improved with course of ceftriaxone as above.
- Significantly improved physical exam, even after discontinuation of antibiotics.
- Continue to observe off antibiotics, as above.
- Bilateral LE US negative for DVT 11/25. Noted prominent lymph node in left groin, though still remains in normal range; suspect reactive secondary to the recent infection of lower leg.
- Continue elevation/compression as needed for swelling.
# Atrial fibrillation; new onset
-EKG with A-fib with RVR on admission
- Evaluated by cardiology, appreciate recs. S/p IV diltiazem drip, then started on PO cardizem.
-Echo with normal left ventricular size with vigorous left ventricular systolic function. Ejection fraction 65-70 percent
-Continue Eliquis while inpatient. However plan to discontinue eliquis at discharge, and continue aspirin alone given high risk of bleeding complication due to recurrent falls.
- Rate adequately controlled, asymptomatic. Continue cardizem 120mg BID.
- Stable, met requirements to discontinue telemetry.
#Ambulatory dysfunction, s/p fall at alf
Prodromal dizziness complicated with hitting head sustained contusion hematoma Lt forehead hematoma
- Head CT negative for intracranial hemorrhage, skull fracture. Partially calcified L meningioma, unchanged; mild cortical atrophy, unchanged.
- Brain MRI negative for acute intracranial hemorrhage or infarction; Possible small old microhemorrhage; stable findings as above; DDD with compression of cervical spinal cord C3-C4, C4-C5.
- Continue PT/OT. Fall precautions
Severe degenerative changes of cervical spine, DDD with compression of spinal cord
History of chronic neck pain secondary to above
- Stable. Cervical spine CT on admission negative for fracture.
- will try lidocaine patch for pain relief
History of traumatic brain injury with skull fracture (2022)
- Unfortunately has been experiencing chronic vertigo since then
- Symptoms stable.
- Continue meclizine as needed for dizziness.
#Benign HTN
HX Fluid retention
- Continue Lisinopril 5mg daily; hold for SBP < 110
- Home metoprolol, amlodipine, hydralazine held this admission. Plan to discontinue these at discharge and defer to PCP in restarting based on outpatient BPs with new cardizem.
Hypokalemia- s/p K supplementation prn. K wnl, no need to trend daily.
HLD- continue home atorvastatin
Depression- continue home fluoxetine; mood stable, denies current depression
GERD/hiatal hernia- continue PPI
Sleep apnea- Continue home cpap
Code status: Full
VTE ppx: eliquis
Diet: Regular
Dispo planning: Discharge to SNF today
Anticipated Discharge: Today
Subjective/Interval History
-
Date of Service: November 28, 2024
No acute events overnight. Feels well. Continues to report chronic dizziness and neck pain. Her chest discomfort from yesterday completely resolved when the position of the electronic device monitor was fixed. Tolerating oral diet. Last bowel movement
yesterday.
Objective Data
-
Vital Signs:
Vital Signs
Temp Pulse Resp BP Pulse Ox
97.6 F 73 16 132/77 100
11/27/24 23:15 11/27/24 23:15 11/27/24 23:15 11/27/24 23:15 11/27/24 23:15
I&O
11/27/24 11/28/24 11/29/24
06:59 06:59 06:59
Intake Total 360 / 360 240 / 240
Balance 360 / 360 240 / 240
Review of Systems
-
History Source: Patient
All other systems: Reviewed and negative
Physical Exam
-
General: No Apparent Distress, Comfortable and Conversant; Negative Pain
HEENT: Normocephalic and Other (ecchymosis of forehead and around eyes bilaterally-- improving )
Respiratory: Clear to Auscultation, Non Labored Respirations and Other (IS at bedside); Negative Wheezes or Crackles
Cardiac: S1/S2 and Irregular Rhythm
GI: Soft, Nontender, Nondistended and Normal Bowel Sounds
Musculoskeletal: Edema, Left Lower Extrem (trace edema left lower leg)
Skin: Warm, Dry and Other (LLE redness improving; abrasion covered by dressing clean/dry/intact)
Neuro: Awake, Alert, AO x 3 and Nonfocal/Grossly Intact
Psych: Calm and Intact Judgement/Insight
Data Reviewed
-
Diagnostic Radiology: Report Reviewed by me
CT Scan: Report Reviewed by me
Ultrasound: Report Reviewed by me
MRI: Report Reviewed by me
Labs: Labs Reviewed by me
[2024-11-28] MEDS: CARDIZEM CD 120 MG PO (10:06)
[2024-11-28] MEDS: PROTONIX 40 MG PO (10:07)
[2024-11-28] MEDS: ZESTRIL 5 MG PO (10:07)
[2024-11-28] MEDS: ELIQUIS 5 MG PO (10:08)
[2024-11-28] MEDS: MAGNESIUM OXIDE 500 MG PO (10:08)
[2024-11-28] MEDS: PROZAC 10 MG PO (10:08)
--- NOTE | 2024-11-28 10:24 | CM ---
CM reviewed chart, patient seen bedside, discussed plan for return to [facility] today. Updates to [facility] through [facility]. Phone call to patients primary contact, granddaughter Johnna, to discuss discharge today. IMM reviewed
verbally, agreeable to discharge, placed in chart. Patient will require ambulance transport upon discharge. CM will continue to follow for discharge planning needs.
Plan; return to [facility]/LTC, 3:00 p.m. ambulance transport
[facility]:
Report: [phone]
--- NOTE | 2024-11-28 14:14 | W.DCSUMMARY ---
Addendum entered and electronically signed by Nakia Marx MD 11/29/24 13:58:
Read, reviewed, and agree. See same day progress note for additional details. Time spent coordinating care, DC planning, review of DC plan of care with resident, transition of care, review of records in EMR, med rec, consults, notes, d/w
consultants, nursing, family, and CM mins
Original Note:
Discharge Summary
Discharge Data
Date of Admission: 11/18/24
Date of Discharge: 11/28/24
-
Pending Results: No
Hospital Course
Discharging Physician : Dr. Nichols/Dr. Marx
Disposition : SNF
Primary care physician : Horace Briseno
Principal Discharge diagnosis :
Ambulatory dysfunction
Status post mechanical fall
Sepsis secondary to urinary tract infection
Toxic metabolic encephalopathy
Cellulitis of left lower leg
Atrial fibrillation with rapid ventricular response
Hypokalemia
Chronic Discharge diagnosis :
Severe degenerative changes of cervical spine
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
History of traumatic brain injury
Hypertension
Hyperlipidemia
Depression
Gastroesophageal reflux disease
Hiatal hernia
Sleep apnea
Hospital Course :
[facility] and mechanical fall few days prior. Imaging in the ED showed no acute intracranial stroke or hemorrhage and no broken bones. She was found to have sepsis and toxic metabolic encephalopathy
secondary to urinary tract infection (E Coli). She also had cellulitis of left lower leg. Her symptoms resolved with antibiotic treatment; she completed 7 day course of IV ceftriaxone on 11/25/23. During this hospitalization she developed new onset
atrial fibrillation with rapid ventricular response, for which cardiology was consulted. Her heart rate was appropriately controlled with diltiazem 120mg BID prior to discharge, and antihypertensive regimen was adjusted accordingly. She received
eliquis while inpatient; eliquis was discontinued at discharge due to her very high risk of bleeding complications due to recurrent falls. On day of discharge, she was stable. Her other chronic conditions remained stable. She was discharged to a
assisted home to continue rehabilitation.
Important imaging findings :
Head CT 11/18/24
FINDINGS:
The ventricles and cortical sulci are mildly dilated. There is no shift of midline structures. There are no mass lesions or mass effect. There is a partially calcified left meningioma, unchanged. There is no evidence of hemorrhage.
The skull appears intact. There is soft tissue swelling over the frontal bone towards the left, likely from recent injury. There is a 1 cm soft tissue mass in the right sphenoid sinus, likely retention cyst or polyp.
IMPRESSION:
There is mild cortical atrophy, unchanged
Cervical spine CT 11/18/24
IMPRESSION:
There is no evidence of fracture.
There are severe degenerative changes with multilevel degenerative disc disease and grade 1 spondylolisthesis at C7/T1
Brain MRI 11/24/24
IMPRESSION: No evidence of acute intracranial abnormality.
Stable 1 cm posterior parafalcine meningioma.
Moderate atrophy, with particular prominence of the subarachnoid cisterns overlying both cerebral hemispheres. Numerous foci of increased T2-weighted signal bilaterally, which likely represent prominent perivascular spaces.
Moderate T2 and FLAIR white matter hyperintensities, commonly seen with aging and usually attributed to small vessel ischemic disease. These have not been shown to correlate with a focal neurologic deficit. These have progressed since examination of
December 2017.
Partially empty sella. This is often an incidental finding of no clinical significance, although it does have an association with idiopathic intracranial hypertension. Many patients are asymptomatic and endocrinologically normal, although with some
increasing reports of variable hypopituitarism and hyperprolactinemia.
Compression of the cervical spinal cord from changes of degenerative disc disease, probably greatest at C3-4. If there are clinical symptoms referrable to the cervical spine and further imaging evaluation is desired, consideration for cervical spine
MRI.
Left Tibia/Fibula xray 11/23/24
IMPRESSION:
No acute osseous abnormality, specifically no radiographic evidence of osteomyelitis.
Left ankle xray 11/23/24
IMPRESSION:
No acute fracture. No overt radiographic evidence for osteomyelitis.
Peripheral vascular ultrasound bilateral lower extremities 11/25/24
IMPRESSION: No evidence of deep venous thrombosis bilaterally.
Procedure findings :
Echocardiogram 11/20/24
CONCLUSIONS
Normal left ventricular size with vigorous left ventricular systolic function
Moderate concentric left ventricular hypertrophy
No Doppler evidence to suggest LV/LVOT obstruction
LV ejection fraction by Castrejon's method 65-70%
Normal RV size and systolic function
Thickened mitral valve leaflets with mitral annular calcification and mild
mitral regurgitation
Mild aortic stenosis with mild aortic insufficiency. Peak/mean gradients across
the aortic valve are 30/17 mmHg. Using an LVOT diameter of 2.1 cm, the aortic
valve by the Continuity equation is calculated at 2.0 cm2; by planimetry 1.7
cm2.
Trace tricuspid regurgitation
No pericardial effusion
Compared to prior study dated 07/27/2021, study was done in sinus rhythm,
otherwise no significant change
Discharge Plan
-
Patient Disposition: Fdc/SNF
Discharge Diagnosis/Procedures: Ambulatory dysfunction
Sepsis secondary to urinary tract infection
Cellulitis of left lower leg
Atrial fibrillation with rapid ventricular response
Hypertension
Hypokalemia
History of traumatic brain injury
Degenerative disc disease cervical spine
Condition: Good
Diet: Regular
Activity: With assistance, As tolerated and With Walker
Driving Restrictions: No driving
Bathing Restrictions: OK to Shower
Instructions: Preventing falls in adults, BLOOD PRESSURE
Referrals:
Horace Briseno DO [Family Provider] - in less than 1 week (Call your Primary Care Provider to schedule follow up appointment within 1 week of hospitalization)
Chan Ochoa MD [Active] - As needed (Call the Cardiology office to schedule appointment as needed)
Additional Discharge Medication Instructions: New medication:
- Take 1 capsule of DILTIAZEM two times per day
- Take 1 tablet of PANTOPRAZOLE daily
- Take 1 tablet of MECLIZINE every 8 hour NEEDED for dizziness
- Apply 1 lidocaine patch to back of neck daily
Medication changes:
- Decrease dose of LISINOPRIL. Now take 1 tablet of LISINOPRIL (5mg) one time per day.
Discontinue these medications:
- Amlodipine
- Hydralazine
- Metoprolol
Ask your Primary Care Provider for refills if needed. Follow up closely with Primary Care Provider to review changes to your home medications.
Continue your other medications the same as before this hospitalization.
Prescriptions:
New
diltiazem HCl 120 mg Capsule,Extended Release 24hr
120 mg PO BID 30 Days Qty: 60 0RF
lisinopril 5 mg Tablet
5 mg PO DAILY Qty: 0 0RF
pantoprazole 40 mg Tablet,Delayed Release (Dr/Ec)
40 mg PO DAILY Qty: 30 0RF
meclizine 25 mg Tablet
25 mg PO Q8HPRN PRN (Reason: dizziness) Qty: 30 0RF
lidocaine 4 % adhesive patch,medicated
1 patch topical DAILY Qty: 30 0RF
Rx Instructions:
apply to back of neck
Continued
oxybutynin chloride 15 MG tablet extended release 24hr
15 mg PO DAILY
omeprazole 40 MG capsule,delayed release(DR/EC)
40 mg PO DAILY
aspirin 81 MG tablet,delayed release (DR/EC)
81 mg PO DAILY
acetaminophen 325 MG tablet
650 mg PO Q4HPRN PRN (Reason: mild pain/ fever>100.5F) 0RF
mineral wkc-sbzxte-twvziud oil Cream
1 applic TOPICAL TIDPRN PRN (Reason: naseem area skin break down)
magnesium hydroxide [Milk of Magnesia] 400 mg/5 mL Suspension
2,400 mg PO DAILYPRN PRN (Reason: if no bm by 3rd day)
bisacodyl [Dulcolax (bisacodyl)] 10 mg Suppository
10 mg CA DAILYPRN PRN (Reason: if no bm aftr mom)
Fleet Enema 19-7 gram/118 mL Enema
118 ml CA DAILYPRN PRN (Reason: if no bm aftr dulcalax)
ipratropium bromide 21 mcg (0.03 %) [place],Non-Aerosol
1 spray INTRANASAL DAILY
polyethylene glycol 3350 [Miralax] 17 gram Powder In Packet
17 g PO DAILY Qty: 0 0RF
cetirizine [Zyrtec] 10 mg Tablet
10 mg PO DAILY Qty: 0 0RF
fluoxetine 10 mg Tablet
10 mg PO DAILY Qty: 0 0RF
cyanocobalamin (vitamin B-12) 1,000 MCG tablet
1,000 mcg PO DAILY Qty: 0 0RF
Systane Ultra 0.4-0.3 % Drops
1 drp BOTH EYES BID Qty: 0 0RF
cholecalciferol (vitamin D3) 1,250 mcg (50,000 unit) Tablet
1,250 mcg PO MO Qty: 0 0RF
mirabegron [Myrbetriq] 25 mg Tablet Extended Release 24 Hr
25 mg PO HS Qty: 0 0RF
Changed
atorvastatin 40 MG tablet
40 mg PO HS Qty: 0 0RF
Discontinued
metoprolol tartrate 50 MG tablet
50 mg PO BID
hydralazine 50 MG tablet
50 mg PO TID
amlodipine 10 MG tablet
10 mg PO DAILY
lisinopril 5 MG tablet
10 mg PO DAILY
Discharge Date and Time
Print Language: BANGLADESHI
[2024-11-28 15:00] VITALS: BP 134/68
[2024-11-28] MEDS: LIDOCAINE 4% PATCH 1 PATCH TOPICAL (15:42)
== END 2024-11-28 18:14 | DRG 871 ==
LOC: 4 WEST ACU 16:18
PROVIDERS: Student in an Organized Health Care Education/Training Program; ADMITTING PHYSICIAN Internal Medicine; ATTENDING PHYSICIAN Hospitalist; EMERGENCY PHYSICIAN Emergency Medicine; FAMILY PHYSICIAN Student in an Organized Health Care Education/Training Program; OTHER PHYSICIAN Internal Medicine Cardiovascular Disease
DX: A41.9 Sepsis, unspecified organism (principal); G92.8 Other toxic encephalopathy; N39.0 Urinary tract infection, site not specified; L03.116 Cellulitis of left lower limb; J98.11 Atelectasis; B96.20 Unspecified Escherichia coli [E. coli] as the cause of diseases classified elsewhere; I48.91 Unspecified atrial fibrillation; W19.XXXA Unspecified fall, initial encounter; E87.6 Hypokalemia; M50.30 Other cervical disc degeneration, unspecified cervical region; Z87.820 Personal history of traumatic brain injury; E78.00 Pure hypercholesterolemia, unspecified; F32.A Depression, unspecified; K21.9 Gastro-esophageal reflux disease without esophagitis; I10 Essential (primary) hypertension; M43.13 Spondylolisthesis, cervicothoracic region; D32.0 Benign neoplasm of cerebral meninges; S00.83XA Contusion of other part of head, initial encounter; Z87.891 Personal history of nicotine dependence; Z91.040 Latex allergy status; Z79.82 Long term (current) use of aspirin; Z90.49 Acquired absence of other specified parts of digestive tract; Z86.0100 Personal history of colon polyps, unspecified; Z79.899 Other long term (current) drug therapy; I34.81 Nonrheumatic mitral (valve) annulus calcification; Z11.52 Encounter for screening for COVID-19
CPT/HCPCS: 70450; 70551; 71046; 72125; 73590; 73600; 80048; 80053; 81003; 81015; 83605; 83735; 84443; 85025; 85027; 87040; 87077; 87086; 87186; 87502; 87811; 93005; 93306; 93970; 96361; 96374; 97162; 97530; 99285

== ENCOUNTER 2025-07-31 13:52 | Emergency (ER) | payer MEDICARE, OTHER, SELFPAY ==
[2025-07-31 13:53] VITALS: BP 153/94
[2025-07-31 14:29] LABS: Hematocrit 41.3 % (37.0-47.0); Hemoglobin 13.9 g/dL (12.0-16.0); Mean Corp Hgb Conc. 33.7 g/dL (33.0-37.0); Mean Corpuscular Volume 94.3 fL (81.0-99.0); Nucleated Red Blood Cells % 0 %; Platelet Count 313 10^3/uL (130-400); Red Cell Dist. Width 12.4 % (11.5-14.5)
[2025-07-31 14:52] LABS: ALT (SGPT) 16 U/L (0-35); AST (SGOT) 23 U/L (14-36); Albumin 4.5 g/dl (3.5-5.0); Alkaline Phosphatase 86 U/L (38-126); Blood Urea Nitrogen 17 mg/dl (7-17); Calcium 10.5 mg/dl (8.4-10.2); Carbon Dioxide 31 mmol/L (22-30); Chloride 103 mmol/L (98-107); Glucose 103 mg/dl (70-99); Potassium 4.2 mmol/L (3.5-5.1); Sodium 141 mmol/L (135-145); Total Protein 8.1 g/dl (6.3-8.2); eGFR > 60.00
--- NOTE | 2025-07-31 18:21 | ED.SKININJ ---
HPI-Injury
General
Chief Complaint: Skin Problem
Source: patient
Exam Limitations: none
Time Seen by Provider: 07/31/25 17:52
Nursing documentation reviewed up to this point in time: agreed with
History of Present Illness-Injury
Initial Injury comments:
85 yo female with h/o CHF, HTN, HLD, GERD, Anxiety, L knee replacement presents after seeing her orthopedic doctor earlier today for left lower leg swelling. States she was told to come and have US to r/o clot. Denies CP, SOB. No recent travel.
Denies fever, redness or pain in the leg. States it has been swelling intermittently for 'a long time.'
Past History
Past History
ED Past Medical History: CHF, GERD, HTN, Hypercholesterolemia and Other (occipital neuralgia, pneumonia)
ED Past Surgical History: Bowel resection and Other (cataracts)
Social History
Tobacco: Former smoker
Alcohol: Occasional
Personal: Single
Living: with family
Employment: Retired
Family History
Family History: Other (Father with a abdominal aortic aneurysm mother with a cerebral hemorrhage, son with HIV)
Review of Systems
Review of Systems
Allergies reviewed?: Yes
All Other Systems: ROS reviewed and negative except as documented in HPI and ROS
Phy Exam
Physical Exam
Physical Exam:
GENERAL: No acute distress. A&Ox3.
CONSTITUTIONAL: Afebrile.
EYES: clear, conjunctivae normal
ENMT: moist mucus membranes, Pharynx nl
RESPIRATORY: Regular respirations, nonlabored, lungs clear.
CARDIOVASCULAR: Regular rate and rhythm, + murmur, no rubs.
GI: Soft, nontender, normal BS
MUSCULOSKELETAL: Moves with ease. Well perfused. Left leg may minimally larger than the right leg, no pitting. No redness, no tenderness. Good pedal pulses. Foot is warm with good capillary refill. Full range of motion of the leg.
SKIN: Warm, dry, pink
PSYCH: Normal mood and affect. Well kept, interactive and appropriate
NEUROLOGIC: Awake, alert and oriented. No focal neurological deficits
Course
Orders/Labs/Results
Orders:
Orders
07/31/25 14:08
Complete Blood Count/With Diff Urgent
Comprehensive Metabolic Panel Urgent
07/31/25 18:22
US Periph Venous LOWER Ext LT Urgent
Comment:
Reason For Exam: swelling
07/31/25 21:58
Acetaminophen [Tylenol] 1,000 mg PO NOW STA
Abnormal Lab Results
07/31/25
14:08
WBC 11.2 H 10^3/uL
(4.8-10.8)
MCH 31.7 H pg
(27.0-31.0)
Absolute Neuts (auto) 8.0 H 10^3/uL
(1.4-6.5)
Absolute Monos (auto) 0.8 H 10^3/uL
(0.1-0.6)
Lymphocytes % 15.3 L %
(20.5-51.1)
Carbon Dioxide 31 H mmol/L
(22-30)
Glucose 103 H mg/dl
(70-99)
Calcium 10.5 H mg/dl
(8.4-10.2)
07/31/25 14:08
07/31/25 14:08
Vital Signs
Initial and Last Documented VS:
Initial Vital Signs
Temp Pulse Resp BP Pulse Ox
98.3 F 74 16 153/94 97
07/31/25 13:53 07/31/25 13:53 07/31/25 13:53 07/31/25 13:53 07/31/25 13:53
Last Documented Vital Signs
Temp Pulse Resp BP Pulse Ox
98.3 F 74 16 153/94 96
07/31/25 13:53 07/31/25 13:53 07/31/25 13:53 07/31/25 13:53 07/31/25 21:00
MDM/Problems Addressed
Differential Diagnosis Includes:
DVT, cellulitis, lymphedema
MDM/Problems Addressed:
85 yo female with h/o CHF, HTN, HLD, GERD, Anxiety, L knee replacement presents from [facility] after seeing her orthopedic doctor earlier today for left lower leg swelling. States she was told to come and have US to r/o clot.
Denies CP, SOB. No recent travel. Denies fever, redness or pain in the leg. States it has been swelling intermittently for 'a long time.'
CBC, CMP with no clinically significant abnormality.
There is no indication of cellulitis or lymphedema. The leg is fairly slightly larger than the opposite leg. There is no redness or warmth. Full range of motion.
Ultrasound negative for DVT. Patient reassured and is stable for discharge.
Spoke with her grand daughter on phone and updated her, pt daughter at bedside.
*Pulse Oximetry
SaO2: 97
Oxygen Mode of Delivery: Room air
Patient hypoxic: no
*Critical Care Note
Total Time (30-74mins, 75-104mins- exclusive of procedures): Not Applicable
ED Attending Note
-
Portions of this chart may have been created with voice recognition software.� Occasional wrong word or��sound alike� substitutions may have occurred due to the inherent limitations of voice recognition software.
Discharge Plan
Departure
Patient Disposition: Home (Routine Discharge)
Date of Disposition: 07/31/25
Time of Disposition: 20:22
Patient with high blood pressure during this ER visit?: No
Condition: Good
Discharge Problem:
Mild left leg swelling
Instructions: Swelling
Prescriptions:
No Action
oxybutynin chloride 15 MG tablet extended release 24hr
15 mg PO DAILY
omeprazole 40 MG capsule,delayed release(DR/EC)
40 mg PO DAILY
aspirin 81 MG tablet,delayed release (DR/EC)
81 mg PO DAILY
acetaminophen 325 MG tablet
650 mg PO Q4HPRN PRN (Reason: mild pain/ fever>100.5F) 0RF
mineral adj-jopjaw-evrxvqh oil Cream
1 applic TOPICAL TIDPRN PRN (Reason: naseem area skin break down)
magnesium hydroxide [Milk of Magnesia] 400 mg/5 mL Suspension
2,400 mg PO DAILYPRN PRN (Reason: if no bm by 3rd day)
bisacodyl [Dulcolax (bisacodyl)] 10 mg Suppository
10 mg [place] DAILYPRN PRN (Reason: if no bm aftr mom)
Fleet Enema 19-7 gram/118 mL Enema
118 ml [place] DAILYPRN PRN (Reason: if no bm aftr dulcalax)
ipratropium bromide 21 mcg (0.03 %) [place],Non-Aerosol
1 spray INTRANASAL DAILY
diltiazem HCl 120 mg Capsule,Extended Release 24hr
120 mg PO BID 30 Days Qty: 60 0RF
lisinopril 5 mg Tablet
5 mg PO DAILY Qty: 0 0RF
atorvastatin 40 MG tablet
40 mg PO HS Qty: 0 0RF
polyethylene glycol 3350 [Miralax] 17 gram Powder In Packet
17 g PO DAILY Qty: 0 0RF
cetirizine [Zyrtec] 10 mg Tablet
10 mg PO DAILY Qty: 0 0RF
fluoxetine 10 mg Tablet
10 mg PO DAILY Qty: 0 0RF
cyanocobalamin (vitamin B-12) 1,000 MCG tablet
1,000 mcg PO DAILY Qty: 0 0RF
Systane Ultra 0.4-0.3 % Drops
1 drp BOTH EYES BID Qty: 0 0RF
cholecalciferol (vitamin D3) 1,250 mcg (50,000 unit) Tablet
1,250 mcg PO MO Qty: 0 0RF
mirabegron [Myrbetriq] 25 mg Tablet Extended Release 24 Hr
25 mg PO HS Qty: 0 0RF
pantoprazole 40 mg Tablet,Delayed Release (Dr/Ec)
40 mg PO DAILY Qty: 30 0RF
meclizine 25 mg Tablet
25 mg PO Q8HPRN PRN (Reason: dizziness) Qty: 30 0RF
lidocaine 4 % adhesive patch,medicated
1 patch topical DAILY Qty: 30 0RF
Rx Instructions:
apply to back of neck
Referrals:
Horace Briseno, DO [Family Provider, Family Practice] - As needed
Activity Restrictions/Additional Instructions:
As we discussed, your ultrasound is negative for any clots.
Your blood work here today shows nothing worrisome.
When your leg seems swollen, elevated to the level of your heart or wear compression stockings.
Interventions
Interventions:
*Risk Screen - Suicide Last Done: 07/31/25 18:23
*General Assessment Last Done: 07/31/25 18:23
*Neglect/Abuse Screening Last Done: 07/31/25 18:23
*ED- Fall Risk Assessment Last Done: 07/31/25 18:23
*ED COVID-19 Vaccine History Last Done: 07/31/25 18:23
*ED Influenza Vaccine History Last Done: 07/31/25 18:23
ED-Skin Assessment Last Done: 07/31/25 20:15
Discharge Date and Time
Print Language: GAMBIAN
[2025-07-31] MEDS: TYLENOL 1000 MG PO (22:26)
== END 2025-07-31 23:14 | disposition home or self-care (01) ==
LOC: EMR 13:52
PROVIDERS: Emergency Medicine; EMERGENCY PHYSICIAN Emergency Medicine; FAMILY PHYSICIAN Student in an Organized Health Care Education/Training Program
DX: R22.42 Localized swelling, mass and lump, left lower limb (principal); I11.0 Hypertensive heart disease with heart failure; I50.9 Heart failure, unspecified; E78.00 Pure hypercholesterolemia, unspecified; F41.9 Anxiety disorder, unspecified; Z87.01 Personal history of pneumonia (recurrent); Z87.891 Personal history of nicotine dependence; Z96.652 Presence of left artificial knee joint
CPT/HCPCS: 99284; 80053; 85025; 93971